=== PATIENT | female | born 1995 | race Caucasian/White ===

== ENCOUNTER 2021-07-10 19:00 | Outpatient (CLI) | payer OTHER ==
[2021-07-10 20:42] VITALS: BP 127/87
[2021-07-10 20:54] VITALS: BP 127/87
[2021-07-10 22:17] LABS: GLUCOMETER DEV NAME(LOC) POC.BV
== END 2021-07-11 09:15 | disposition home or self-care (01) ==
LOC: CSU 19:00
PROVIDERS: ATTEND Psychiatry & Neurology Psychiatry
DX: F42.9 Obsessive-compulsive disorder, unspecified (principal); F41.9 Anxiety disorder, unspecified; Z20.822 Contact with and (suspected) exposure to COVID-19; Z88.0 Allergy status to penicillin
CPT/HCPCS: 90792

== ENCOUNTER 2021-09-30 20:30 | Emergency (ER) | payer OTHER ==
[~2021-09-30] VITALS: Ht 170.2 cm; Wt 113.6 kg
[2021-09-30] MEDS ORDERED: LEVO125 PO (20:36)
[2021-09-30 21:11] LABS: BASOPHILS % (AUTO) 0.7 % (0.0-2.0); EOSINOPHILS % (AUTO) 2.8 % (1.0-6.0); HEMATOCRIT 40.1 % (36-46); HEMOGLOBIN 13.3 g/dL (12.0-16.0); LYMPHOCYTES # (AUTO) 2.9 K/uL (1.0-4.8); LYMPHOCYTES % (AUTO) 31.8 % (22.0-44.0); MEAN CORPUSCULAR HEMOGLOBIN 27.3 pg (26.0-34.0); MEAN CORPUSCULAR HGB CONC 33.3 G/dL (31.0-37.0); MEAN CORPUSCULAR VOLUME 82 fL (80-100); MONOCYTES # (AUTO) 0.6 K/uL (0.1-1.0); NEUTROPHILS # (AUTO) 5.3 K/uL (1.8-7.7); NEUTROPHILS % (AUTO) 57.7 % (40.0-70.0); PLATELET COUNT (AUTO) 356 K/uL (150-450); RED BLOOD CELL COUNT(AUTO) 4.88 MIL/uL (4.00-5.20); RED CELL DISTRIBUTION WIDTH 14.3 % (11.5-14.5)
[2021-09-30 21:20] LABS: ANION GAP 8 mmol/L (8-16); CALCIUM, TOTAL 9.2 mg/dL (8.8-10.5); CARBON DIOXIDE 28 mmol/L (22-29); CHLORIDE 104 mmol/L (98-107); CREATININE 0.81 mg/dL (0.60-1.30); GLUCOSE,RANDOM 94 mg/dL (70-110); POTASSIUM 3.6 mmol/L (3.5-5.1); SODIUM SERUM 140 mmol/L (136-145); UREA NITROGEN, BLOOD 10 mg/dL (7-18)
[2021-09-30 21:22] LABS: GLOMERULAR FILTR. RATE CALC > 60 mL/min (>60)
[2021-09-30 21:34] LABS: ALANINE AMINOTRANSFERASE 32 U/L (12-78); ALBUMIN 3.8 g/dL (3.4-5.0); ALKALINE PHOSPHATASE 109 U/L (46-116); ASPARTATE AMINOTRANSFERASE 17 U/L (15-37); BILIRUBIN,TOTAL 0.4 mg/dL (0.1-1.0); HCG,QUANTITATIVE < 1 mIU/mL (0-6); THYROID STIMULATING HORMONE 1.07 uIU/mL (0.36-3.74); TOTAL PROTEIN, SERUM 7.7 g/dL (6.4-8.2)
[2021-09-30 22:56] LABS: AMPHET/METH SCREEN,URINE NEGATIVE (NEGATIVE); BARBITURATE SCREEN, URINE NEGATIVE (NEGATIVE); BENZODIAZEPINES SCREEN,URINE NEGATIVE (NEGATIVE); CANNABINOID SCREEN,URINE NEGATIVE (NEGATIVE); COCAINE SCREEN,URINE NEGATIVE (NEGATIVE); METHADONE SCREEN, URINE NEGATIVE (NEGATIVE); OPIATE SCREEN,URINE NEGATIVE (NEGATIVE)
[2021-09-30 22:59] LABS: PHENCYCLIDINE SCREEN,URINE NEGATIVE (NEGATIVE)
[2021-10-01 00:09] LABS: COVID AG,FIA SOURCE NASAL SWAB
[2021-10-01 00:47] VITALS: BP 120/70
[2021-10-01] MEDS ORDERED: FLUV150C2 PO (20:03)
[2021-10-01] MEDS ORDERED: LAMO150T6 PO (20:03)
[2021-10-01] MEDS ORDERED: HYDR-4808 PO (20:03)
[2021-10-01] MEDS ORDERED: LEVO75 PO (20:03)
== END 2021-10-01 01:07 | disposition home or self-care (01) ==
LOC: EMS 20:34
DX: F41.9 Anxiety disorder, unspecified (principal); Z20.822 Contact with and (suspected) exposure to COVID-19; F32.9 Major depressive disorder, single episode, unspecified; F10.20 Alcohol dependence, uncomplicated; Z88.0 Allergy status to penicillin
CPT/HCPCS: 36415; 80053; 80307; 84443; 84702; 85025; 87426; 99284; G0480; 99283

== ENCOUNTER 2021-10-01 18:38 | Inpatient (IN) | payer OTHER ==
[~2021-10-01] VITALS: Ht 175.3 cm; Wt 131.3 kg
[~2021-10-01 18:38] MED LIST: LEVO125 PO
[2021-10-01 19:49] LABS: BASOPHILS % (AUTO) 0.5 % (0.0-2.0); EOSINOPHILS % (AUTO) 1.6 % (1.0-6.0); HEMATOCRIT 38.4 % (36-46); HEMOGLOBIN 12.9 g/dL (12.0-16.0); LYMPHOCYTES # (AUTO) 2.1 K/uL (1.0-4.8); MEAN CORPUSCULAR HEMOGLOBIN 27.7 pg (26.0-34.0); MEAN CORPUSCULAR HGB CONC 33.7 G/dL (31.0-37.0); MEAN CORPUSCULAR VOLUME 82 fL (80-100); MONOCYTES # (AUTO) 0.7 K/uL (0.1-1.0); MONOCYTES % (AUTO) 7.1 % (2.0-9.0); NEUTROPHILS # (AUTO) 7.4 K/uL (1.8-7.7); NEUTROPHILS % (AUTO) 70.8 % (40.0-70.0); PLATELET COUNT (AUTO) 350 K/uL (150-450); RED BLOOD CELL COUNT(AUTO) 4.66 MIL/uL (4.00-5.20); RED CELL DISTRIBUTION WIDTH 14.1 % (11.5-14.5)
[2021-10-01 19:58] LABS: ANION GAP 7 mmol/L (8-16); CALCIUM, TOTAL 9.4 mg/dL (8.8-10.5); CARBON DIOXIDE 30 mmol/L (22-29); CHLORIDE 101 mmol/L (98-107); CREATININE 0.87 mg/dL (0.60-1.30); GLOMERULAR FILTR. RATE CALC > 60 mL/min (>60); GLUCOSE,RANDOM 92 mg/dL (70-110); POTASSIUM 4.4 mmol/L (3.5-5.1); SODIUM SERUM 138 mmol/L (136-145); UREA NITROGEN, BLOOD 14 mg/dL (7-18)
[2021-10-01] MEDS ORDERED: SODIUM CHLORIDE 0.9% 1,000 ML IV ONE (20:00)
[2021-10-01] MEDS ORDERED: LEVO75 PO (20:03)
[2021-10-01] MEDS ORDERED: FLUV150C2 PO (20:03)
[2021-10-01] MEDS ORDERED: HYDR-4808 PO (20:03)
[2021-10-01] MEDS ORDERED: LAMO150T6 PO (20:03)
[2021-10-01 20:09] LABS: ALANINE AMINOTRANSFERASE 30 U/L (12-78); ALBUMIN 3.9 g/dL (3.4-5.0); ALKALINE PHOSPHATASE 106 U/L (46-116); ASPARTATE AMINOTRANSFERASE 16 U/L (15-37); BILIRUBIN,TOTAL 0.4 mg/dL (0.1-1.0); HCG,QUANTITATIVE < 1 mIU/mL (0-6); TOTAL PROTEIN, SERUM 7.7 g/dL (6.4-8.2)
[2021-10-01 20:10] LABS: ACETAMINOPHEN < 2 mcg/mL (10-30)
[2021-10-01 20:14] LABS: SALICYLATE 0.2 mg/dL (2.8-20.0)
[2021-10-01] MEDS ORDERED: ACTIVATED CHARCOAL 50 GM/240 ML SUSPENSION PO ONE (21:15)
[2021-10-01] MEDS ORDERED: SODIUM BICARBONATE [ADULT] 8.4% 50 MEQ/50 ML SYRINGE IVP ONE (21:30)
[2021-10-01] MEDS ORDERED: ONDANSETRON HCL 4 MG/2 ML VIAL IVP PRN (22:15)
[2021-10-01 22:35] LABS: COVID AG,FIA SOURCE NASAL SWAB
[2021-10-01 22:39] LABS: FREE T4 (FREE THYROXINE) 1.37 ng/dL (0.76-1.46); THYROID STIMULATING HORMONE 1.61 uIU/mL (0.36-3.74)
[2021-10-02] VITALS: BP 129/80
[2021-10-02] MEDS ORDERED: HEPARIN SODIUM,PORCINE 5,000 UNITS/ML VIAL SQ SCH
[2021-10-02 04:00] VITALS: BP 120/75
[2021-10-02 05:03] LABS: BASOPHILS % (AUTO) 0.4 % (0.0-2.0); EOSINOPHILS % (AUTO) 0.9 % (1.0-6.0); HEMATOCRIT 32.5 % (36-46); HEMOGLOBIN 10.8 g/dL (12.0-16.0); LYMPHOCYTES # (AUTO) 2.1 K/uL (1.0-4.8); MEAN CORPUSCULAR HEMOGLOBIN 27.6 pg (26.0-34.0); MEAN CORPUSCULAR HGB CONC 33.2 G/dL (31.0-37.0); MEAN CORPUSCULAR VOLUME 83 fL (80-100); MONOCYTES # (AUTO) 0.8 K/uL (0.1-1.0); MONOCYTES % (AUTO) 6.4 % (2.0-9.0); NEUTROPHILS # (AUTO) 8.7 K/uL (1.8-7.7); NEUTROPHILS % (AUTO) 74.3 % (40.0-70.0); PLATELET COUNT (AUTO) 275 K/uL (150-450); RED BLOOD CELL COUNT(AUTO) 3.91 MIL/uL (4.00-5.20); RED CELL DISTRIBUTION WIDTH 14.2 % (11.5-14.5)
[2021-10-02 05:11] LABS: ANION GAP 6 mmol/L (8-16); CALCIUM, TOTAL 8.6 mg/dL (8.8-10.5); CARBON DIOXIDE 28 mmol/L (22-29); CHLORIDE 103 mmol/L (98-107); GLUCOSE,RANDOM 94 mg/dL (70-110); POTASSIUM 3.5 mmol/L (3.5-5.1); SODIUM SERUM 137 mmol/L (136-145); UREA NITROGEN, BLOOD 11 mg/dL (7-18)
[2021-10-02 05:16] LABS: GLOMERULAR FILTR. RATE CALC > 60 mL/min (>60)
[2021-10-02] MEDS ORDERED: MAGNESIUM SULFATE 2 GM/WATER 50 ML IV ONE (07:00)
[2021-10-02] MEDS ORDERED: POTASSIUM CHLORIDE 10% 40 MEQ/30 ML LIQUID UDCUP PO ONE (07:00)
[2021-10-02 07:19] LABS: ACETAMINOPHEN < 2 mcg/mL (10-30)
[2021-10-02 08:00] VITALS: BP 99/63
[2021-10-02] MEDS: NYSTATIN 15 GM POWDER BOTTLE TP SCH ×2 (10:02→21:05)
[2021-10-02] MEDS ORDERED: SODIUM CHLORIDE 0.9% 250 ML IV ONE (10:10)
[2021-10-02 12:03] VITALS: BP 123/80
[2021-10-02 16:08] VITALS: BP 101/41
[2021-10-02 20:27] VITALS: BP 114/72
[2021-10-03 00:33] VITALS: BP 110/62
[2021-10-03 04:20] VITALS: BP 126/69
[2021-10-03 08:02] VITALS: BP 121/70
[2021-10-03 08:09] LABS: BASOPHILS % (AUTO) 1.1 % (0.0-2.0); EOSINOPHILS % (AUTO) 2.9 % (1.0-6.0); HEMATOCRIT 33.7 % (36-46); HEMOGLOBIN 11.4 g/dL (12.0-16.0); LYMPHOCYTES # (AUTO) 3.3 K/uL (1.0-4.8); LYMPHOCYTES % (AUTO) 39.6 % (22.0-44.0); MEAN CORPUSCULAR HGB CONC 33.9 G/dL (31.0-37.0); MEAN CORPUSCULAR VOLUME 82 fL (80-100); MONOCYTES # (AUTO) 0.7 K/uL (0.1-1.0); MONOCYTES % (AUTO) 8.1 % (2.0-9.0); NEUTROPHILS % (AUTO) 48.3 % (40.0-70.0); PLATELET COUNT (AUTO) 279 K/uL (150-450); RED BLOOD CELL COUNT(AUTO) 4.09 MIL/uL (4.00-5.20); RED CELL DISTRIBUTION WIDTH 14.3 % (11.5-14.5)
[2021-10-03 08:36] LABS: ANION GAP 7 mmol/L (8-16); BILIRUBIN,TOTAL 0.5 mg/dL (0.1-1.0); CALCIUM, TOTAL 8.8 mg/dL (8.8-10.5); CARBON DIOXIDE 28 mmol/L (22-29); CHLORIDE 102 mmol/L (98-107); CREATININE 0.76 mg/dL (0.60-1.30); GLUCOSE,RANDOM 91 mg/dL (70-110); POTASSIUM 3.9 mmol/L (3.5-5.1); SODIUM SERUM 137 mmol/L (136-145); UREA NITROGEN, BLOOD 13 mg/dL (7-18)
[2021-10-03 08:37] LABS: ALANINE AMINOTRANSFERASE 21 U/L (12-78); ALBUMIN 3.2 g/dL (3.4-5.0); ALKALINE PHOSPHATASE 91 U/L (46-116); ASPARTATE AMINOTRANSFERASE 15 U/L (15-37); GLOMERULAR FILTR. RATE CALC > 60 mL/min (>60); TOTAL PROTEIN, SERUM 6.9 g/dL (6.4-8.2)
[2021-10-03 12:00] VITALS: BP 138/49
[2021-10-03] MEDS: NYSTATIN 15 GM POWDER BOTTLE TP SCH ×2 (15:03→21:00)
[2021-10-03 16:01] VITALS: BP 106/60
[2021-10-03 20:15] VITALS: BP 105/49
[2021-10-04 05:00] VITALS: BP 115/50
[2021-10-04 08:03] VITALS: BP 119/62
[2021-10-04] MEDS: NYSTATIN 15 GM POWDER BOTTLE TP SCH (08:46)
[2021-10-04 16:10] VITALS: BP 114/58
[2021-10-04] MEDS ORDERED: NYST15PO3 TP (18:04)
== END 2021-10-04 18:15 | DRG 817 ==
LOC: EMS 18:41 → ICU 23:56 → 5S 10-02 12:15 → 6S 10-03 15:10
PROVIDERS: ADMIT Internal Medicine; ATTEND Internal Medicine
DX: T38.1X2A Poisoning by thyroid hormones and substitutes, intentional self-harm, initial encounter (principal); G92.9 Unspecified toxic encephalopathy; R45.851 Suicidal ideations; T43.012A Poisoning by tricyclic antidepressants, intentional self-harm, initial encounter; D72.829 Elevated white blood cell count, unspecified; E03.9 Hypothyroidism, unspecified; E66.01 Morbid (severe) obesity due to excess calories; D64.9 Anemia, unspecified; Z20.822 Contact with and (suspected) exposure to COVID-19; F42.9 Obsessive-compulsive disorder, unspecified; F32.A Depression, unspecified; Y92.89 Other specified places as the place of occurrence of the external cause; Z88.0 Allergy status to penicillin; Z79.899 Other long term (current) drug therapy; Z68.41 Body mass index [BMI] 40.0-44.9, adult
CPT/HCPCS: 80048; 80053; 83540; 83735; 84439; 84443; 84481; 84702; 85025; 85045; 87081; 93005; 99291; G0378; G0480; G0481; J1644; J3475; J3490; J7050

== ENCOUNTER 2021-10-04 18:00 | Inpatient (IN) | payer MEDICAID ==
[~2021-10-04] VITALS: Ht 170.2 cm; Wt 131.6 kg
[~2021-10-04 18:00] MED LIST changes: +FLUV150C2 PO; +HYDR-4808 PO; +LAMO150T6 PO; +LEVO75 PO
[2021-10-04] MEDS ORDERED: NYST15PO3 TP (18:04)
[2021-10-04 18:58] VITALS: BP 136/89
[2021-10-05] MEDS ORDERED: PETROLATUM,WHITE 28 GM JELLY TP PRN (06:15)
[2021-10-05] MEDS ORDERED: NICOTINE 14 MG/24 HOUR PATCH TD PRN (06:15)
[2021-10-05] MEDS ORDERED: LOPERAMIDE HCL 2 MG CAPSULE PO PRN (06:15)
[2021-10-05] MEDS ORDERED: CloNIDine HCL 0.1 MG TABLET PO PRN (06:15)
[2021-10-05] MEDS ORDERED: ALBUTEROL SULFATE HFA 90 MCG/PUFF 8 GM INHALER IH PRN (06:15)
[2021-10-05] MEDS ORDERED: MAGNESIUM HYDROXIDE SUSPENSION 30 ML UDCUP PO PRN (06:15)
[2021-10-05] MEDS ORDERED: DOCUSATE SODIUM 100 MG CAPSULE PO PRN (06:15)
[2021-10-05] MEDS ORDERED: IBUPROFEN 400 MG TABLET PO PRN (06:15)
[2021-10-05] MEDS ORDERED: MAG HYDROX/AL HYDROX/SIMETH ES 30 ML SUSPENSION UDCUP PO PRN (06:15)
[2021-10-05] MEDS ORDERED: GuaiFENesin/D-METHORPHAN [SUGAR-FREE] 200-20MG/10 ML SYRUP UDCUP PO PRN (06:15)
[2021-10-05] MEDS: LEVOTHYROXINE SODIUM 50 MCG TABLET PO SCH (06:44)
[2021-10-05 09:04] VITALS: BP 125/88
[2021-10-05 11:22] LABS: BASOPHILS % (AUTO) 0.7 % (0.0-2.0); EOSINOPHILS % (AUTO) 2.6 % (1.0-6.0); HEMATOCRIT 37.3 % (36-46); HEMOGLOBIN 12.3 g/dL (12.0-16.0); LYMPHOCYTES # (AUTO) 2.5 K/uL (1.0-4.8); LYMPHOCYTES % (AUTO) 25.6 % (22.0-44.0); MEAN CORPUSCULAR HEMOGLOBIN 27.2 pg (26.0-34.0); MEAN CORPUSCULAR HGB CONC 32.9 G/dL (31.0-37.0); MEAN CORPUSCULAR VOLUME 83 fL (80-100); MONOCYTES # (AUTO) 0.6 K/uL (0.1-1.0); MONOCYTES % (AUTO) 6.4 % (2.0-9.0); NEUTROPHILS # (AUTO) 6.2 K/uL (1.8-7.7); NEUTROPHILS % (AUTO) 64.7 % (40.0-70.0); PLATELET COUNT (AUTO) 322 K/uL (150-450); RED BLOOD CELL COUNT(AUTO) 4.52 MIL/uL (4.00-5.20); RED CELL DISTRIBUTION WIDTH 13.8 % (11.5-14.5)
[2021-10-05 12:50] LABS: ALANINE AMINOTRANSFERASE 24 U/L (12-78); ALBUMIN 3.5 g/dL (3.4-5.0); ALKALINE PHOSPHATASE 93 U/L (46-116); ANION GAP 8 mmol/L (8-16); ASPARTATE AMINOTRANSFERASE 12 U/L (15-37); BILIRUBIN,TOTAL 0.5 mg/dL (0.1-1.0); CALCIUM, TOTAL 9.2 mg/dL (8.8-10.5); CARBON DIOXIDE 29 mmol/L (22-29); CHLORIDE 103 mmol/L (98-107); CREATININE 0.86 mg/dL (0.60-1.30); FREE T4 (FREE THYROXINE) 1.52 ng/dL (0.76-1.46); GLUCOSE,RANDOM 87 mg/dL (70-110); POTASSIUM 4.2 mmol/L (3.5-5.1); SODIUM SERUM 140 mmol/L (136-145); THYROID STIMULATING HORMONE 0.06 uIU/mL (0.36-3.74); TOTAL PROTEIN, SERUM 7.1 g/dL (6.4-8.2); UREA NITROGEN, BLOOD 19 mg/dL (7-18)
[2021-10-05 12:51] LABS: GLOMERULAR FILTR. RATE CALC > 60 mL/min (>60)
[2021-10-05] MEDS: NYSTATIN 15 GM POWDER BOTTLE TP SCH ×3 (14:30→17:08)
[2021-10-05 16:00] VITALS: BP 138/83
[2021-10-06] MEDS: LEVOTHYROXINE SODIUM 50 MCG TABLET PO SCH (06:09)
[2021-10-06 08:44] VITALS: BP 108/76
[2021-10-06] MEDS: FluvoxaMINE MALEATE 50 MG TABLET PO SCH (09:15)
[2021-10-06] MEDS: NYSTATIN 15 GM POWDER BOTTLE TP SCH ×2 (09:16→17:00)
[2021-10-06 16:00] VITALS: BP 110/68
[2021-10-07] MEDS: LEVOTHYROXINE SODIUM 50 MCG TABLET PO SCH (06:51)
[2021-10-07 08:05] VITALS: BP 136/90
[2021-10-07 08:08] LABS: COVID AG,FIA SOURCE NASAL SWAB
[2021-10-07] MEDS: FluvoxaMINE MALEATE 50 MG TABLET PO SCH (08:49)
[2021-10-07] MEDS: NYSTATIN 15 GM POWDER BOTTLE TP SCH ×2 (09:00→16:28)
[2021-10-07 16:00] VITALS: BP 131/80
[2021-10-07 18:09] VITALS: BP 139/89
[2021-10-07] MEDS: HALOPERIDOL 5 MG TABLET PO PRN (18:09)
[2021-10-07] MEDS: LORazepam 2 MG TABLET PO PRN (18:09)
[2021-10-08] MEDS: LEVOTHYROXINE SODIUM 50 MCG TABLET PO SCH (06:13)
[2021-10-08 08:11] VITALS: BP 115/70
[2021-10-08] MEDS: NYSTATIN 15 GM POWDER BOTTLE TP SCH ×2 (08:46→16:33)
[2021-10-08] MEDS: FluvoxaMINE MALEATE 50 MG TABLET PO SCH (08:46)
[2021-10-09] MEDS: LEVOTHYROXINE SODIUM 50 MCG TABLET PO SCH (06:38)
[2021-10-09 08:00] VITALS: BP 144/92
[2021-10-09] MEDS: NYSTATIN 15 GM POWDER BOTTLE TP SCH ×2 (10:08→16:07)
[2021-10-09] MEDS: FluvoxaMINE MALEATE 50 MG TABLET PO SCH (10:08)
[2021-10-09 16:30] VITALS: BP 118/79
[2021-10-09] MEDS: LORazepam 2 MG TABLET PO PRN (16:49)
[2021-10-09] MEDS: HALOPERIDOL 5 MG TABLET PO PRN (16:49)
[2021-10-09] MEDS ORDERED: FLUV50 PO (21:27)
[2021-10-10] MEDS: LORazepam 2 MG TABLET PO PRN (00:22)
[2021-10-10] MEDS: HALOPERIDOL 5 MG TABLET PO PRN (00:22)
[2021-10-10] MEDS: LEVOTHYROXINE SODIUM 50 MCG TABLET PO SCH (06:38)
[2021-10-10 08:59] VITALS: BP 145/89
[2021-10-10] MEDS: FluvoxaMINE MALEATE 50 MG TABLET PO SCH (10:26)
[2021-10-10] MEDS: NYSTATIN 15 GM POWDER BOTTLE TP SCH ×2 (10:26→16:06)
[2021-10-10 16:30] VITALS: BP 124/89
[2021-10-10 21:18] VITALS: BP 147/94
[2021-10-11] MEDS: LEVOTHYROXINE SODIUM 50 MCG TABLET PO SCH (06:32)
[2021-10-11 08:38] VITALS: BP 140/88
[2021-10-11] MEDS: NYSTATIN 15 GM POWDER BOTTLE TP SCH ×2 (09:00→16:17)
[2021-10-11] MEDS: FluvoxaMINE MALEATE 50 MG TABLET PO SCH (09:01)
[2021-10-11 16:00] VITALS: BP 131/83
[2021-10-11] MEDS: LORazepam 2 MG TABLET PO PRN (22:40)
[2021-10-12] MEDS: LEVOTHYROXINE SODIUM 50 MCG TABLET PO SCH (06:49)
[2021-10-12 08:00] VITALS: BP 90/68
[2021-10-12] MEDS: FluvoxaMINE MALEATE 50 MG TABLET PO SCH (08:38)
[2021-10-12] MEDS: NYSTATIN 15 GM POWDER BOTTLE TP SCH ×2 (09:00→16:23)
[2021-10-12 16:21] VITALS: BP 109/72
[2021-10-12] MEDS: LORazepam 2 MG TABLET PO PRN (20:49)
[2021-10-13] MEDS: LEVOTHYROXINE SODIUM 50 MCG TABLET PO SCH (06:47)
[2021-10-13 08:00] VITALS: BP 106/67
[2021-10-13] MEDS: FluvoxaMINE MALEATE 50 MG TABLET PO SCH (08:51)
[2021-10-13] MEDS: NYSTATIN 15 GM POWDER BOTTLE TP SCH ×2 (09:00→16:10)
[2021-10-13 12:51] LABS: COVID AG,FIA SOURCE NASAL SWAB
[2021-10-13 16:16] VITALS: BP 129/87
[2021-10-14] MEDS: LEVOTHYROXINE SODIUM 50 MCG TABLET PO SCH (06:36)
[2021-10-14 08:33] VITALS: BP 121/81
[2021-10-14] MEDS: FluvoxaMINE MALEATE 50 MG TABLET PO SCH (08:48)
[2021-10-14] MEDS: NYSTATIN 15 GM POWDER BOTTLE TP SCH ×2 (09:00→16:11)
[2021-10-14] MEDS: HALOPERIDOL 5 MG TABLET PO PRN (14:56)
[2021-10-14] MEDS: LORazepam 2 MG TABLET PO PRN (14:57)
[2021-10-14 17:29] VITALS: BP 99/47
[2021-10-15] MEDS: LEVOTHYROXINE SODIUM 50 MCG TABLET PO SCH (06:51)
[2021-10-15 08:28] VITALS: BP 103/65
[2021-10-15] MEDS: NYSTATIN 15 GM POWDER BOTTLE TP SCH ×2 (09:59→16:16)
[2021-10-15] MEDS: FluvoxaMINE MALEATE 50 MG TABLET PO SCH (10:00)
[2021-10-15 16:10] VITALS: BP 112/75
[2021-10-15] MEDS: LORazepam 2 MG TABLET PO PRN (21:06)
[2021-10-16] MEDS: LEVOTHYROXINE SODIUM 50 MCG TABLET PO SCH (06:38)
[2021-10-16 08:00] VITALS: BP 132/82
[2021-10-16] MEDS: FluvoxaMINE MALEATE 50 MG TABLET PO SCH (08:26)
[2021-10-16] MEDS: NYSTATIN 15 GM POWDER BOTTLE TP SCH ×2 (08:32→16:06)
[2021-10-16 16:49] VITALS: BP 139/75
[2021-10-16] MEDS: LORazepam 2 MG TABLET PO PRN (22:01)
[2021-10-17] MEDS: LEVOTHYROXINE SODIUM 50 MCG TABLET PO SCH (06:11)
[2021-10-17 08:00] VITALS: BP 117/68
[2021-10-17] MEDS: FluvoxaMINE MALEATE 50 MG TABLET PO SCH (08:06)
[2021-10-17] MEDS: NYSTATIN 15 GM POWDER BOTTLE TP SCH ×2 (09:00→16:30)
[2021-10-17] MEDS: LORazepam 2 MG TABLET PO PRN (21:00)
[2021-10-18] MEDS: LEVOTHYROXINE SODIUM 50 MCG TABLET PO SCH (06:15)
[2021-10-18 08:00] VITALS: BP 116/66
[2021-10-18] MEDS: LORazepam 2 MG TABLET PO PRN ×2 (08:49→21:21)
[2021-10-18] MEDS: FluvoxaMINE MALEATE 50 MG TABLET PO SCH (08:49)
[2021-10-18] MEDS: NYSTATIN 15 GM POWDER BOTTLE TP SCH ×2 (09:00→17:00)
[2021-10-18 16:00] VITALS: BP 110/69
[2021-10-19] MEDS: LEVOTHYROXINE SODIUM 50 MCG TABLET PO SCH (06:52)
[2021-10-19 08:55] VITALS: BP 109/69
[2021-10-19] MEDS: NYSTATIN 15 GM POWDER BOTTLE TP SCH ×2 (09:00→16:34)
[2021-10-19] MEDS: FluvoxaMINE MALEATE 50 MG TABLET PO SCH (09:07)
[2021-10-19 16:29] VITALS: BP 103/66
[2021-10-19] MEDS: LORazepam 2 MG TABLET PO PRN (22:57)
[2021-10-19] MEDS: HALOPERIDOL 5 MG TABLET PO PRN (22:57)
[2021-10-20] MEDS: LEVOTHYROXINE SODIUM 50 MCG TABLET PO SCH (06:37)
[2021-10-20 07:05] LABS: COVID AG,FIA SOURCE NASAL SWAB
[2021-10-20] MEDS: FluvoxaMINE MALEATE 50 MG TABLET PO SCH (08:30)
[2021-10-20 08:33] VITALS: BP 133/82
[2021-10-20] MEDS: NYSTATIN 15 GM POWDER BOTTLE TP SCH ×2 (08:46→16:32)
[2021-10-20 16:27] VITALS: BP 113/56
[2021-10-20] MEDS: HALOPERIDOL 5 MG TABLET PO PRN (17:54)
[2021-10-20] MEDS: LORazepam 2 MG TABLET PO PRN (17:54)
[2021-10-21] MEDS: LEVOTHYROXINE SODIUM 50 MCG TABLET PO SCH (06:38)
[2021-10-21 08:54] VITALS: BP 131/86
[2021-10-21] MEDS: FluvoxaMINE MALEATE 50 MG TABLET PO SCH (09:03)
[2021-10-21 16:00] VITALS: BP 145/85
[2021-10-21] MEDS: LORazepam 2 MG TABLET PO PRN (17:04)
[2021-10-21] MEDS: HALOPERIDOL 5 MG TABLET PO PRN (17:04)
[2021-10-22] MEDS: LEVOTHYROXINE SODIUM 50 MCG TABLET PO SCH (06:54)
[2021-10-22] MEDS: FluvoxaMINE MALEATE 50 MG TABLET PO SCH (08:51)
[2021-10-22 08:58] VITALS: BP 106/68
[2021-10-22 16:18] VITALS: BP 110/60
[2021-10-22] MEDS: HALOPERIDOL 5 MG TABLET PO PRN (17:15)
[2021-10-22] MEDS: LORazepam 2 MG TABLET PO PRN (17:15)
[2021-10-23] MEDS: LEVOTHYROXINE SODIUM 50 MCG TABLET PO SCH (06:20)
[2021-10-23 09:07] VITALS: BP 129/86
[2021-10-23] MEDS: FluvoxaMINE MALEATE 50 MG TABLET PO SCH (10:17)
[2021-10-23] MEDS: HALOPERIDOL 5 MG TABLET PO PRN ×2 (13:12→20:51)
[2021-10-23] MEDS: LORazepam 2 MG TABLET PO PRN (13:12)
[2021-10-23 16:22] VITALS: BP 124/82
[2021-10-23 20:45] VITALS: BP 140/98
[2021-10-24] MEDS: LEVOTHYROXINE SODIUM 50 MCG TABLET PO SCH (07:00)
[2021-10-24] MEDS: FluvoxaMINE MALEATE 50 MG TABLET PO SCH (08:10)
[2021-10-24 08:49] VITALS: BP 103/66
[2021-10-24 16:07] VITALS: BP 124/86
[2021-10-24] MEDS: LORazepam 2 MG TABLET PO PRN (21:31)
[2021-10-25] MEDS: LEVOTHYROXINE SODIUM 50 MCG TABLET PO SCH (06:34)
[2021-10-25] MEDS: FluvoxaMINE MALEATE 50 MG TABLET PO SCH (09:32)
[2021-10-25] MEDS: ONDANSETRON HCL 4 MG TABLET PO PRN (10:23)
[2021-10-25] MEDS: ACETAMINOPHEN 325 MG TABLET PO PRN (15:35)
[2021-10-25 16:30] VITALS: BP 119/81
[2021-10-25] MEDS: HALOPERIDOL 5 MG TABLET PO PRN (18:04)
[2021-10-25] MEDS: LORazepam 2 MG TABLET PO PRN (18:04)
[2021-10-26] MEDS: LEVOTHYROXINE SODIUM 50 MCG TABLET PO SCH (06:36)
[2021-10-26 08:00] VITALS: BP 104/70
[2021-10-26] MEDS: FluvoxaMINE MALEATE 50 MG TABLET PO SCH (08:29)
[2021-10-26] MEDS: ONDANSETRON HCL 4 MG TABLET PO PRN (08:47)
[2021-10-26] MEDS: LORazepam 2 MG TABLET PO PRN (11:41)
[2021-10-26 16:00] VITALS: BP 108/65
[2021-10-26] MEDS: DIVALPROEX SODIUM 500 MG DR TABLET PO SCH (16:14)
[2021-10-26] MEDS: HALOPERIDOL 5 MG TABLET PO PRN (16:14)
[2021-10-26] MEDS: LITHIUM CARBONATE 300 MG CAPSULE PO SCH (20:32)
[2021-10-26 21:56] LABS: COVID AG,FIA SOURCE NASAL SWAB
[2021-10-27] MEDS: LEVOTHYROXINE SODIUM 50 MCG TABLET PO SCH (06:52)
[2021-10-27 09:10] VITALS: BP 99/59
[2021-10-27] MEDS: DIVALPROEX SODIUM 500 MG DR TABLET PO SCH ×2 (09:15→16:18)
[2021-10-27] MEDS: LITHIUM CARBONATE 300 MG CAPSULE PO SCH ×2 (09:15→20:17)
[2021-10-27] MEDS: FluvoxaMINE MALEATE 50 MG TABLET PO SCH (09:15)
[2021-10-27 16:00] VITALS: BP 132/81
[2021-10-27] MEDS: HALOPERIDOL 5 MG TABLET PO PRN (17:57)
[2021-10-28] MEDS: LEVOTHYROXINE SODIUM 50 MCG TABLET PO SCH (06:33)
[2021-10-28] MEDS: LITHIUM CARBONATE 300 MG CAPSULE PO SCH ×2 (09:49→20:24)
[2021-10-28] MEDS: FluvoxaMINE MALEATE 50 MG TABLET PO SCH (09:49)
[2021-10-28] MEDS: DIVALPROEX SODIUM 500 MG DR TABLET PO SCH ×2 (09:49→16:12)
[2021-10-28 10:01] VITALS: BP 125/87
[2021-10-28 16:59] VITALS: BP 99/62
[2021-10-28] MEDS: HALOPERIDOL 5 MG TABLET PO PRN ×2 (18:35→22:59)
[2021-10-29] MEDS: LEVOTHYROXINE SODIUM 50 MCG TABLET PO SCH (06:43)
[2021-10-29] MEDS: FluvoxaMINE MALEATE 50 MG TABLET PO SCH (08:30)
[2021-10-29] MEDS: DIVALPROEX SODIUM 500 MG DR TABLET PO SCH ×2 (08:30→16:29)
[2021-10-29] MEDS: LITHIUM CARBONATE 300 MG CAPSULE PO SCH ×2 (08:30→20:31)
[2021-10-29 09:04] VITALS: BP 98/60
[2021-10-29 16:27] VITALS: BP 110/65
[2021-10-29] MEDS: HALOPERIDOL 5 MG TABLET PO PRN (22:36)
[2021-10-30 05:49] VITALS: BP 129/85
[2021-10-30] MEDS: LEVOTHYROXINE SODIUM 50 MCG TABLET PO SCH (06:23)
[2021-10-30] MEDS: DIVALPROEX SODIUM 500 MG DR TABLET PO SCH ×2 (08:29→16:10)
[2021-10-30] MEDS: FluvoxaMINE MALEATE 50 MG TABLET PO SCH (08:29)
[2021-10-30] MEDS: LITHIUM CARBONATE 300 MG CAPSULE PO SCH ×2 (08:29→20:14)
[2021-10-30 09:33] VITALS: BP 104/62
[2021-10-30 16:23] VITALS: BP 146/89
[2021-10-30] MEDS: HALOPERIDOL 5 MG TABLET PO PRN (20:14)
[2021-10-31 00:10] VITALS: BP 130/72
[2021-10-31] MEDS: HALOPERIDOL 5 MG TABLET PO PRN ×3 (00:34→20:37)
[2021-10-31] MEDS: LEVOTHYROXINE SODIUM 50 MCG TABLET PO SCH (06:47)
[2021-10-31 07:02] LABS: LITHIUM 0.34 mmol/L (0.60-1.20)
[2021-10-31] MEDS: FluvoxaMINE MALEATE 50 MG TABLET PO SCH (08:28)
[2021-10-31] MEDS: DIVALPROEX SODIUM 500 MG DR TABLET PO SCH ×2 (08:28→16:29)
[2021-10-31] MEDS: LITHIUM CARBONATE 300 MG CAPSULE PO SCH ×2 (08:28→20:36)
[2021-10-31 09:54] VITALS: BP 98/60
[2021-10-31 16:21] VITALS: BP 95/56
[2021-11-01] MEDS: LEVOTHYROXINE SODIUM 50 MCG TABLET PO SCH (06:26)
[2021-11-01 08:00] VITALS: BP 109/68
[2021-11-01] MEDS: DIVALPROEX SODIUM 500 MG DR TABLET PO SCH ×2 (08:37→16:50)
[2021-11-01] MEDS: FluvoxaMINE MALEATE 50 MG TABLET PO SCH (08:37)
[2021-11-01] MEDS: LITHIUM CARBONATE 300 MG CAPSULE PO SCH ×2 (08:37→20:59)
[2021-11-01 16:00] VITALS: BP 138/73
[2021-11-01] MEDS: HALOPERIDOL 5 MG TABLET PO PRN (20:00)
[2021-11-02] MEDS: LEVOTHYROXINE SODIUM 50 MCG TABLET PO SCH (06:49)
[2021-11-02 07:08] LABS: COVID AG,FIA SOURCE NASAL SWAB
[2021-11-02] MEDS: DIVALPROEX SODIUM 500 MG DR TABLET PO SCH ×2 (08:17→16:35)
[2021-11-02] MEDS: LITHIUM CARBONATE 300 MG CAPSULE PO SCH ×2 (08:17→20:48)
[2021-11-02] MEDS: FluvoxaMINE MALEATE 50 MG TABLET PO SCH (08:18)
[2021-11-02 09:08] VITALS: BP 94/59
[2021-11-02 16:23] VITALS: BP 106/71
[2021-11-02] MEDS: HALOPERIDOL 5 MG TABLET PO PRN ×2 (16:35→20:48)
[2021-11-03] MEDS: LEVOTHYROXINE SODIUM 50 MCG TABLET PO SCH (06:36)
[2021-11-03 08:02] VITALS: BP 103/66
[2021-11-03] MEDS: DIVALPROEX SODIUM 500 MG DR TABLET PO SCH ×2 (08:40→16:06)
[2021-11-03] MEDS: LITHIUM CARBONATE 300 MG CAPSULE PO SCH ×2 (08:40→20:05)
[2021-11-03] MEDS: FluvoxaMINE MALEATE 50 MG TABLET PO SCH (08:40)
[2021-11-03 16:05] VITALS: BP 117/68
[2021-11-03] MEDS: HALOPERIDOL 5 MG TABLET PO PRN (21:43)
[2021-11-04] MEDS: LEVOTHYROXINE SODIUM 50 MCG TABLET PO SCH (06:34)
[2021-11-04] MEDS: LITHIUM CARBONATE 300 MG CAPSULE PO SCH ×2 (08:05→20:01)
[2021-11-04] MEDS: DIVALPROEX SODIUM 500 MG DR TABLET PO SCH ×2 (08:05→16:49)
[2021-11-04] MEDS: FluvoxaMINE MALEATE 50 MG TABLET PO SCH (08:05)
[2021-11-04 09:52] VITALS: BP 112/69
[2021-11-04 16:54] VITALS: BP 112/69
[2021-11-04] MEDS: HALOPERIDOL 5 MG TABLET PO PRN (22:23)
[2021-11-05] MEDS: LEVOTHYROXINE SODIUM 50 MCG TABLET PO SCH (06:29)
[2021-11-05 08:00] VITALS: BP 144/88
[2021-11-05] MEDS: FluvoxaMINE MALEATE 50 MG TABLET PO SCH (09:23)
[2021-11-05] MEDS: DIVALPROEX SODIUM 500 MG DR TABLET PO SCH ×2 (09:23→17:43)
[2021-11-05] MEDS: LITHIUM CARBONATE 300 MG CAPSULE PO SCH ×2 (09:23→20:16)
[2021-11-05 16:00] VITALS: BP 127/72
[2021-11-05] MEDS: HALOPERIDOL 5 MG TABLET PO PRN ×2 (17:44→21:50)
[2021-11-05 20:47] VITALS: BP 129/82
[2021-11-06] MEDS: LEVOTHYROXINE SODIUM 50 MCG TABLET PO SCH (06:28)
[2021-11-06 08:00] VITALS: BP 114/65
[2021-11-06] MEDS: LITHIUM CARBONATE 300 MG CAPSULE PO SCH ×2 (08:56→20:05)
[2021-11-06] MEDS: DIVALPROEX SODIUM 500 MG DR TABLET PO SCH ×2 (08:56→16:07)
[2021-11-06] MEDS: FluvoxaMINE MALEATE 50 MG TABLET PO SCH (08:57)
[2021-11-06] MEDS: HALOPERIDOL 5 MG TABLET PO PRN (20:04)
[2021-11-07] MEDS: HALOPERIDOL 5 MG TABLET PO PRN ×2 (00:31→22:44)
[2021-11-07] MEDS: LEVOTHYROXINE SODIUM 50 MCG TABLET PO SCH (06:29)
[2021-11-07] MEDS: LITHIUM CARBONATE 300 MG CAPSULE PO SCH ×2 (08:36→20:04)
[2021-11-07] MEDS: FluvoxaMINE MALEATE 50 MG TABLET PO SCH (08:36)
[2021-11-07] MEDS: DIVALPROEX SODIUM 500 MG DR TABLET PO SCH ×2 (08:37→16:24)
[2021-11-07 08:44] VITALS: BP 98/57
[2021-11-07 16:00] VITALS: BP 110/65
[2021-11-08] MEDS: LEVOTHYROXINE SODIUM 50 MCG TABLET PO SCH (07:01)
[2021-11-08 08:00] VITALS: BP 103/65
[2021-11-08] MEDS: DIVALPROEX SODIUM 500 MG DR TABLET PO SCH ×2 (08:32→16:11)
[2021-11-08] MEDS: FluvoxaMINE MALEATE 50 MG TABLET PO SCH (08:32)
[2021-11-08] MEDS: LITHIUM CARBONATE 300 MG CAPSULE PO SCH ×2 (08:32→20:27)
[2021-11-08] MEDS: HALOPERIDOL 5 MG TABLET PO PRN ×2 (12:34→18:03)
[2021-11-08 16:26] VITALS: BP 110/80
[2021-11-09 00:44] VITALS: BP 110/80
[2021-11-09] MEDS: HALOPERIDOL 5 MG TABLET PO PRN ×2 (00:53→20:52)
[2021-11-09] MEDS: LEVOTHYROXINE SODIUM 50 MCG TABLET PO SCH ×2 (06:05→07:00)
[2021-11-09] MEDS: LITHIUM CARBONATE 300 MG CAPSULE PO SCH ×2 (08:21→20:33)
[2021-11-09] MEDS: DIVALPROEX SODIUM 500 MG DR TABLET PO SCH ×2 (08:21→17:54)
[2021-11-09] MEDS: FluvoxaMINE MALEATE 50 MG TABLET PO SCH (08:21)
[2021-11-09 09:52] VITALS: BP 136/83
[2021-11-09 10:10] LABS: COVID AG,FIA SOURCE NASOPHARYNGEAL
[2021-11-09 16:31] VITALS: BP 136/86
[2021-11-10] MEDS: HALOPERIDOL 5 MG TABLET PO PRN ×2 (00:57→15:22)
[2021-11-10] MEDS: FluvoxaMINE MALEATE 50 MG TABLET PO SCH (08:55)
[2021-11-10] MEDS: DIVALPROEX SODIUM 500 MG DR TABLET PO SCH ×2 (08:55→16:24)
[2021-11-10] MEDS: LITHIUM CARBONATE 300 MG CAPSULE PO SCH ×2 (08:55→21:12)
[2021-11-10 16:00] VITALS: BP 129/91
[2021-11-11] MEDS: LEVOTHYROXINE SODIUM 50 MCG TABLET PO SCH ×2 (06:39→20:12)
[2021-11-11 08:00] VITALS: BP 102/56
[2021-11-11] MEDS: DIVALPROEX SODIUM 500 MG DR TABLET PO SCH ×2 (09:37→16:11)
[2021-11-11] MEDS: FluvoxaMINE MALEATE 50 MG TABLET PO SCH (09:37)
[2021-11-11] MEDS: LITHIUM CARBONATE 300 MG CAPSULE PO SCH ×2 (09:37→20:02)
[2021-11-11] MEDS: HALOPERIDOL 5 MG TABLET PO PRN ×2 (16:11→23:52)
[2021-11-11 16:26] VITALS: BP 109/66
[2021-11-12 01:00] VITALS: BP 110/72
[2021-11-12] MEDS: ACETAMINOPHEN 325 MG TABLET PO PRN (01:13)
[2021-11-12] MEDS: LEVOTHYROXINE SODIUM 50 MCG TABLET PO SCH (06:32)
[2021-11-12] MEDS: DIVALPROEX SODIUM 500 MG DR TABLET PO SCH ×2 (09:09→17:14)
[2021-11-12] MEDS: LITHIUM CARBONATE 300 MG CAPSULE PO SCH ×2 (09:09→21:29)
[2021-11-12] MEDS: FluvoxaMINE MALEATE 50 MG TABLET PO SCH (09:09)
[2021-11-12 10:15] VITALS: BP 96/56
[2021-11-12] MEDS: HALOPERIDOL 5 MG TABLET PO PRN (17:14)
[2021-11-13] MEDS: HALOPERIDOL 5 MG TABLET PO PRN ×3 (01:00→22:37)
[2021-11-13] MEDS: LEVOTHYROXINE SODIUM 50 MCG TABLET PO SCH (06:26)
[2021-11-13] MEDS: LITHIUM CARBONATE 300 MG CAPSULE PO SCH ×2 (08:58→20:51)
[2021-11-13] MEDS: FluvoxaMINE MALEATE 50 MG TABLET PO SCH (08:58)
[2021-11-13] MEDS: DIVALPROEX SODIUM 500 MG DR TABLET PO SCH ×2 (08:58→17:14)
[2021-11-13 09:09] VITALS: BP 107/64
[2021-11-13 16:00] VITALS: BP 116/72
[2021-11-14] MEDS: HALOPERIDOL 5 MG TABLET PO PRN ×2 (03:09→16:34)
[2021-11-14] MEDS: LEVOTHYROXINE SODIUM 50 MCG TABLET PO SCH (06:05)
[2021-11-14 08:02] VITALS: BP 93/64
[2021-11-14] MEDS: DIVALPROEX SODIUM 500 MG DR TABLET PO SCH ×2 (08:33→16:34)
[2021-11-14] MEDS: LITHIUM CARBONATE 300 MG CAPSULE PO SCH ×2 (08:33→20:48)
[2021-11-14] MEDS: FluvoxaMINE MALEATE 50 MG TABLET PO SCH (08:33)
[2021-11-14 16:15] VITALS: BP 99/69
[2021-11-15] MEDS: HALOPERIDOL 5 MG TABLET PO PRN (02:02)
[2021-11-15] MEDS: LEVOTHYROXINE SODIUM 50 MCG TABLET PO SCH (06:20)
[2021-11-15 08:46] VITALS: BP 105/63
[2021-11-15] MEDS: FluvoxaMINE MALEATE 50 MG TABLET PO SCH (09:31)
[2021-11-15] MEDS: LITHIUM CARBONATE 300 MG CAPSULE PO SCH ×2 (09:31→20:23)
[2021-11-15] MEDS: DIVALPROEX SODIUM 500 MG DR TABLET PO SCH ×2 (09:31→16:45)
[2021-11-15 18:04] VITALS: BP 116/86
[2021-11-16] MEDS: HALOPERIDOL 5 MG TABLET PO PRN ×3 (00:53→16:53)
[2021-11-16] MEDS: LEVOTHYROXINE SODIUM 50 MCG TABLET PO SCH (06:25)
[2021-11-16 08:30] VITALS: BP 98/60
[2021-11-16] MEDS: LITHIUM CARBONATE 300 MG CAPSULE PO SCH ×2 (08:35→20:17)
[2021-11-16] MEDS: DIVALPROEX SODIUM 500 MG DR TABLET PO SCH ×2 (08:35→16:53)
[2021-11-16] MEDS: FluvoxaMINE MALEATE 50 MG TABLET PO SCH (08:36)
[2021-11-16 09:59] LABS: COVID AG,FIA SOURCE NASAL SWAB
[2021-11-16 16:28] VITALS: BP 127/80
[2021-11-17] MEDS: HALOPERIDOL 5 MG TABLET PO PRN ×2 (00:46→16:46)
[2021-11-17] MEDS: LEVOTHYROXINE SODIUM 50 MCG TABLET PO SCH (06:28)
[2021-11-17] MEDS: LITHIUM CARBONATE 300 MG CAPSULE PO SCH ×2 (08:17→20:43)
[2021-11-17] MEDS: FluvoxaMINE MALEATE 50 MG TABLET PO SCH (08:17)
[2021-11-17] MEDS: DIVALPROEX SODIUM 500 MG DR TABLET PO SCH ×2 (08:17→16:46)
[2021-11-17 09:19] VITALS: BP 112/73
[2021-11-17 16:25] VITALS: BP 119/74
[2021-11-18] MEDS: HALOPERIDOL 5 MG TABLET PO PRN ×2 (03:18→23:03)
[2021-11-18 04:03] VITALS: BP 126/83
[2021-11-18] MEDS: LEVOTHYROXINE SODIUM 50 MCG TABLET PO SCH (06:30)
[2021-11-18 09:05] VITALS: BP 102/64
[2021-11-18] MEDS: DIVALPROEX SODIUM 500 MG DR TABLET PO SCH ×2 (09:11→16:23)
[2021-11-18] MEDS: FluvoxaMINE MALEATE 50 MG TABLET PO SCH (09:11)
[2021-11-18] MEDS: LITHIUM CARBONATE 300 MG CAPSULE PO SCH ×2 (09:11→20:13)
[2021-11-18 20:45] VITALS: BP 123/83
[2021-11-19] MEDS: LEVOTHYROXINE SODIUM 50 MCG TABLET PO SCH (06:24)
[2021-11-19] MEDS ORDERED: FLUV150C2 PO ×2 (07:19→07:23)
[2021-11-19] MEDS ORDERED: FLUV50 PO (07:21)
[2021-11-19 08:00] VITALS: BP 135/85
[2021-11-19] MEDS ORDERED: LITH300C3 PO (08:04)
[2021-11-19] MEDS ORDERED: DIVA-112 PO (08:04)
[2021-11-19] MEDS ORDERED: LEVO50TA11 PO ×2 (08:27→08:29)
[2021-11-19] MEDS: LITHIUM CARBONATE 300 MG CAPSULE PO SCH (09:02)
[2021-11-19] MEDS: DIVALPROEX SODIUM 500 MG DR TABLET PO SCH (09:02)
[2021-11-19] MEDS: FluvoxaMINE MALEATE 50 MG TABLET PO SCH (09:03)
== END 2021-11-19 09:00 | disposition home or self-care (01) | DRG 750 ==
LOC: 3EI 18:00
PROVIDERS: ADMIT Psychiatry & Neurology Psychiatry; ATTEND Psychiatry & Neurology Psychiatry
DX: F25.9 Schizoaffective disorder, unspecified (principal); D64.9 Anemia, unspecified; E03.9 Hypothyroidism, unspecified; E66.01 Morbid (severe) obesity due to excess calories; Z68.42 Body mass index [BMI] 45.0-49.9, adult
CPT/HCPCS: 80053; 80164; 80178; 84439; 84443; 85025; 87081; Q0162

== ENCOUNTER 2022-03-27 15:56 | Inpatient (IN) | payer MEDICAID, OTHER ==
[~2022-03-27] VITALS: Ht 170.2 cm; Wt 129.4 kg
[~2022-03-27 15:56] MED LIST changes: +DIVA-112 PO; -FLUV150C2 PO; +FLUV50 PO; -HYDR-4808 PO; -LAMO150T6 PO; -LEVO125 PO; +LEVO50TA11 PO; -LEVO75 PO; +LITH300C3 PO
[2022-03-27 16:44] LABS: BASOPHILS % (AUTO) 0.6 % (0.0-2.0); EOSINOPHILS % (AUTO) 1.3 % (1.0-6.0); HEMATOCRIT 38.3 % (36-46); HEMOGLOBIN 12.5 g/dL (12.0-16.0); LYMPHOCYTES # (AUTO) 2.7 K/uL (1.0-4.8); LYMPHOCYTES % (AUTO) 22.8 % (22.0-44.0); MEAN CORPUSCULAR HEMOGLOBIN 26.9 pg (26.0-34.0); MEAN CORPUSCULAR HGB CONC 32.7 G/dL (31.0-37.0); MEAN CORPUSCULAR VOLUME 82 fL (80-100); MONOCYTES # (AUTO) 0.6 K/uL (0.1-1.0); NEUTROPHILS # (AUTO) 8.3 K/uL (1.8-7.7); NEUTROPHILS % (AUTO) 70.3 % (40.0-70.0); PLATELET COUNT (AUTO) 383 K/uL (150-450); RED BLOOD CELL COUNT(AUTO) 4.66 MIL/uL (4.00-5.20); RED CELL DISTRIBUTION WIDTH 15.4 % (11.5-14.5)
[2022-03-27 17:01] LABS: ANION GAP 7 mmol/L (8-16); CALCIUM, TOTAL 9.2 mg/dL (8.8-10.5); CARBON DIOXIDE 30 mmol/L (22-29); CHLORIDE 101 mmol/L (98-107); CREATININE 0.76 mg/dL (0.60-1.30); GLOMERULAR FILTR. RATE CALC > 60 mL/min (>60); GLUCOSE,RANDOM 105 mg/dL (70-110); POTASSIUM 3.9 mmol/L (3.5-5.1); SODIUM SERUM 138 mmol/L (136-145); UREA NITROGEN, BLOOD 17 mg/dL (7-18)
[2022-03-27 17:07] LABS: ALANINE AMINOTRANSFERASE 14 U/L (12-78); ALBUMIN 3.8 g/dL (3.4-5.0); ALKALINE PHOSPHATASE 106 U/L (46-116); ASPARTATE AMINOTRANSFERASE 14 U/L (15-37); BILIRUBIN,TOTAL 0.3 mg/dL (0.1-1.0); TOTAL PROTEIN, SERUM 7.5 g/dL (6.4-8.2)
[2022-03-27 17:07] LABS: AMPHET/METH SCREEN,URINE NEGATIVE (NEGATIVE); BARBITURATE SCREEN, URINE NEGATIVE (NEGATIVE); BENZODIAZEPINES SCREEN,URINE NEGATIVE (NEGATIVE); CANNABINOID SCREEN,URINE NEGATIVE (NEGATIVE); COCAINE SCREEN,URINE NEGATIVE (NEGATIVE); METHADONE SCREEN, URINE NEGATIVE (NEGATIVE); OPIATE SCREEN,URINE NEGATIVE (NEGATIVE)
[2022-03-27] MEDS ORDERED: LURA60TA PO (17:09)
[2022-03-27 17:14] LABS: ACETAMINOPHEN < 2 mcg/mL (10-30); VALPROIC ACID < 3 mcg/mL (50-100)
[2022-03-27 17:15] LABS: PHENCYCLIDINE SCREEN,URINE NEGATIVE (NEGATIVE)
[2022-03-27 17:22] LABS: SALICYLATE 0.7 mg/dL (2.8-20.0)
[2022-03-27 17:34] LABS: LITHIUM < 0.20 mmol/L (0.60-1.20)
[2022-03-27] MEDS ORDERED: OLANZapine 5 MG RAPDIS TABLET PO PRN (21:15)
[2022-03-27] MEDS ORDERED: LORazepam 2 MG TABLET PO PRN (21:15)
[2022-03-27] MEDS ORDERED: ZOLPIDEM TARTRATE 10 MG TABLET PO PRN (21:15)
[2022-03-27 21:41] LABS: COVID AG,FIA SOURCE NASOPHARYNGEAL
[2022-03-28 00:32] VITALS: BP 141/91
[2022-03-28 07:05] LABS: HEMOGLOBIN 11.9 g/dL (12.0-16.0); MEAN CORPUSCULAR HEMOGLOBIN 27.1 pg (26.0-34.0); MEAN CORPUSCULAR HGB CONC 33.1 G/dL (31.0-37.0); MEAN CORPUSCULAR VOLUME 82 fL (80-100); PLATELET COUNT (AUTO) 336 K/uL (150-450); RED BLOOD CELL COUNT(AUTO) 4.39 MIL/uL (4.00-5.20); RED CELL DISTRIBUTION WIDTH 15.5 % (11.5-14.5)
[2022-03-28 07:23] LABS: ALANINE AMINOTRANSFERASE 14 U/L (12-78); ALBUMIN 3.5 g/dL (3.4-5.0); ALKALINE PHOSPHATASE 93 U/L (46-116); ANION GAP 5 mmol/L (8-16); ASPARTATE AMINOTRANSFERASE 12 U/L (15-37); BILIRUBIN,TOTAL 0.3 mg/dL (0.1-1.0); CALCIUM, TOTAL 9.3 mg/dL (8.8-10.5); CARBON DIOXIDE 31 mmol/L (22-29); CHLORIDE 100 mmol/L (98-107); CHOL/HDL RATIO 2.7 (3.9-5.7); CHOLESTEROL 168 mg/dL (131-200); CREATININE 0.81 mg/dL (0.60-1.30); FREE T4 (FREE THYROXINE) 2.56 ng/dL (0.76-1.46); GLUCOSE,RANDOM 94 mg/dL (70-110); HDL CHOLESTEROL 62 mg/dL (40-60); LDL CHOL (CALC.) 99 mg/dL (0-130); POTASSIUM 3.8 mmol/L (3.5-5.1); SODIUM SERUM 136 mmol/L (136-145); THYROID STIMULATING HORMONE 0.52 uIU/mL (0.36-3.74); TOTAL PROTEIN, SERUM 6.9 g/dL (6.4-8.2); TRIGLYCERIDES 37 mg/dL (15-150); UREA NITROGEN, BLOOD 14 mg/dL (7-18)
[2022-03-28 07:24] LABS: GLOMERULAR FILTR. RATE CALC > 60 mL/min (>60)
[2022-03-28 07:27] LABS: HEMOGLOBIN A1C 5.3 % (3.8-5.6)
[2022-03-28 08:55] VITALS: BP 110/70
[2022-03-28 20:31] VITALS: BP 149/86
[2022-03-28] MEDS ORDERED: LOPERAMIDE HCL 2 MG CAPSULE PO PRN (22:00)
[2022-03-28] MEDS ORDERED: TUBERCULIN, PURIFIED PROTEIN DERIVATIVE 5 TU/0.1 ML SYRINGE ID ONE (22:00)
[2022-03-28] MEDS ORDERED: MAGNESIUM HYDROXIDE SUSPENSION 30 ML UDCUP PO PRN (22:00)
[2022-03-28] MEDS ORDERED: GuaiFENesin/D-METHORPHAN [SUGAR-FREE] 200-20MG/10 ML SYRUP UDCUP PO PRN (22:00)
[2022-03-28] MEDS ORDERED: ACETAMINOPHEN 325 MG TABLET PO PRN (22:00)
[2022-03-28] MEDS ORDERED: HydrOXYzine PAMOATE 50 MG CAPSULE PO PRN (22:00)
[2022-03-28] MEDS ORDERED: LURASIDONE HCL 20 MG TABLET PO PRN (22:00)
[2022-03-28] MEDS ORDERED: PROMETHAZINE HCL 25 MG TABLET PO PRN (22:00)
[2022-03-28] MEDS ORDERED: MAG HYDROX/AL HYDROX/SIMETH ES 30 ML SUSPENSION UDCUP PO PRN (22:00)
[2022-03-29] MEDS ORDERED: LURASIDONE HCL 60 MG TABLET PO SCH (07:00)
[2022-03-29 08:12] VITALS: BP 135/92
[2022-03-29] MEDS: FluvoxaMINE MALEATE 50 MG TABLET PO SCH (08:56)
[2022-03-29] MEDS: LITHIUM CARBONATE 300 MG CAPSULE PO SCH ×4 (08:56→20:44)
[2022-03-29] MEDS: NALTREXONE HCL 50 MG TABLET PO SCH (08:56)
[2022-03-29] MEDS: FOLIC ACID 1 MG TABLET PO SCH (08:56)
[2022-03-29] MEDS: OMEGA-3/DHA/EPA/FISH OIL 1,000 MG CAPSULE PO SCH (08:57)
[2022-03-29] MEDS: MULTIVITAMINS WITH MINERALS, THERAPEUTIC TABLET PO SCH (08:57)
[2022-03-29] MEDS: THIAMINE 100 MG TABLET PO SCH ×2 (08:57→16:40)
[2022-03-29 20:38] VITALS: BP 136/80
[2022-03-29] MEDS: MELATONIN 5 MG TABLET PO SCH (20:45)
[2022-03-30] MEDS ORDERED: LURASIDONE HCL 80 MG TABLET PO SCH (07:00)
[2022-03-30 08:30] VITALS: BP 130/80
[2022-03-30] MEDS: FluvoxaMINE MALEATE 50 MG TABLET PO SCH (09:09)
[2022-03-30] MEDS: LITHIUM CARBONATE 300 MG CAPSULE PO SCH ×4 (09:09→20:29)
[2022-03-30] MEDS: NALTREXONE HCL 50 MG TABLET PO SCH (09:09)
[2022-03-30] MEDS: MULTIVITAMINS WITH MINERALS, THERAPEUTIC TABLET PO SCH (09:09)
[2022-03-30] MEDS: FOLIC ACID 1 MG TABLET PO SCH (09:09)
[2022-03-30] MEDS: THIAMINE 100 MG TABLET PO SCH ×2 (09:09→16:33)
[2022-03-30] MEDS: OMEGA-3/DHA/EPA/FISH OIL 1,000 MG CAPSULE PO SCH (09:09)
[2022-03-30 20:26] VITALS: BP 118/85
[2022-03-30] MEDS: MELATONIN 5 MG TABLET PO SCH (20:30)
[2022-03-31] MEDS: LURASIDONE HCL 60 MG TABLET PO SCH (06:35)
[2022-03-31 08:00] VITALS: BP 116/72
[2022-03-31] MEDS: THIAMINE 100 MG TABLET PO SCH ×2 (08:37→16:19)
[2022-03-31] MEDS: FOLIC ACID 1 MG TABLET PO SCH (08:37)
[2022-03-31] MEDS: LITHIUM CARBONATE 300 MG CAPSULE PO SCH ×4 (08:37→20:15)
[2022-03-31] MEDS: MULTIVITAMINS WITH MINERALS, THERAPEUTIC TABLET PO SCH (08:37)
[2022-03-31] MEDS: FluvoxaMINE MALEATE 50 MG TABLET PO SCH (08:38)
[2022-03-31] MEDS: NALTREXONE HCL 50 MG TABLET PO SCH (08:38)
[2022-03-31] MEDS: OMEGA-3/DHA/EPA/FISH OIL 1,000 MG CAPSULE PO SCH (08:38)
[2022-03-31] MEDS: MELATONIN 5 MG TABLET PO SCH (20:15)
[2022-03-31 21:40] VITALS: BP 115/68
[2022-04-01] MEDS: LURASIDONE HCL 60 MG TABLET PO SCH (06:35)
[2022-04-01 08:17] VITALS: BP 109/64
[2022-04-01] MEDS: NALTREXONE HCL 50 MG TABLET PO SCH (08:39)
[2022-04-01] MEDS: MULTIVITAMINS WITH MINERALS, THERAPEUTIC TABLET PO SCH (08:39)
[2022-04-01] MEDS: FOLIC ACID 1 MG TABLET PO SCH (08:40)
[2022-04-01] MEDS: OMEGA-3/DHA/EPA/FISH OIL 1,000 MG CAPSULE PO SCH (08:40)
[2022-04-01] MEDS: THIAMINE 100 MG TABLET PO SCH ×2 (08:40→16:54)
[2022-04-01] MEDS: FluvoxaMINE MALEATE 50 MG TABLET PO SCH (08:40)
[2022-04-01] MEDS: LITHIUM CARBONATE 300 MG CAPSULE PO SCH ×4 (08:40→20:46)
[2022-04-01 09:41] LABS: GLUCOMETER DEV NAME(LOC) POC.BV
[2022-04-01 20:29] VITALS: BP 107/69
[2022-04-01] MEDS: MELATONIN 5 MG TABLET PO SCH (20:47)
[2022-04-02] MEDS: LURASIDONE HCL 60 MG TABLET PO SCH (07:04)
[2022-04-02 08:36] VITALS: BP 118/90
[2022-04-02] MEDS: NALTREXONE HCL 50 MG TABLET PO SCH (09:51)
[2022-04-02] MEDS: OMEGA-3/DHA/EPA/FISH OIL 1,000 MG CAPSULE PO SCH (09:51)
[2022-04-02] MEDS: LITHIUM CARBONATE 300 MG CAPSULE PO SCH ×4 (09:51→20:40)
[2022-04-02] MEDS: THIAMINE 100 MG TABLET PO SCH ×2 (09:52→16:55)
[2022-04-02] MEDS: MULTIVITAMINS WITH MINERALS, THERAPEUTIC TABLET PO SCH (09:52)
[2022-04-02] MEDS: FluvoxaMINE MALEATE 50 MG TABLET PO SCH (09:52)
[2022-04-02] MEDS: FOLIC ACID 1 MG TABLET PO SCH (09:52)
[2022-04-02 20:24] VITALS: BP 122/62
[2022-04-02] MEDS: MELATONIN 5 MG TABLET PO SCH (20:41)
[2022-04-03] MEDS: LURASIDONE HCL 60 MG TABLET PO SCH (07:02)
[2022-04-03 08:53] VITALS: BP 104/63
[2022-04-03] MEDS: THIAMINE 100 MG TABLET PO SCH ×2 (09:31→16:16)
[2022-04-03] MEDS: FOLIC ACID 1 MG TABLET PO SCH (09:31)
[2022-04-03] MEDS: MULTIVITAMINS WITH MINERALS, THERAPEUTIC TABLET PO SCH (09:31)
[2022-04-03] MEDS: LITHIUM CARBONATE 300 MG CAPSULE PO SCH ×4 (09:31→21:00)
[2022-04-03] MEDS: NALTREXONE HCL 50 MG TABLET PO SCH (09:31)
[2022-04-03] MEDS: OMEGA-3/DHA/EPA/FISH OIL 1,000 MG CAPSULE PO SCH (09:31)
[2022-04-03] MEDS: FluvoxaMINE MALEATE 50 MG TABLET PO SCH (09:32)
[2022-04-03] MEDS ORDERED: LITH600C PO (10:55)
[2022-04-03] MEDS ORDERED: LEVO75 PO (10:55)
[2022-04-03] MEDS: MELATONIN 5 MG TABLET PO SCH (21:00)
[2022-04-04] MEDS: NALTREXONE HCL 50 MG TABLET PO SCH (09:00)
[2022-04-04] MEDS ORDERED: FLUoxetine HCL 20 MG CAPSULE PO SCH (09:00)
[2022-04-04] MEDS: MULTIVITAMINS WITH MINERALS, THERAPEUTIC TABLET PO SCH (09:00)
[2022-04-04] MEDS ORDERED: FluvoxaMINE MALEATE 50 MG TABLET PO SCH (09:00)
[2022-04-04] MEDS: FOLIC ACID 1 MG TABLET PO SCH (09:00)
[2022-04-04] MEDS: LITHIUM CARBONATE 300 MG CAPSULE PO SCH ×2 (09:00→13:00)
[2022-04-04] MEDS: OMEGA-3/DHA/EPA/FISH OIL 1,000 MG CAPSULE PO SCH (09:00)
[2022-04-04] MEDS: THIAMINE 100 MG TABLET PO SCH (09:00)
== END 2022-04-04 19:59 | disposition home or self-care (01) | DRG 753 ==
LOC: EMS 15:59 → UNDOADMIN 20:30 → B2S 20:30 → B3A 20:30 → UNDOADMIN 21:10 → 3EI 21:10
PROVIDERS: ADMIT Psychiatry & Neurology Psychiatry; ATTEND Psychiatry & Neurology Psychiatry
DX: F31.9 Bipolar disorder, unspecified (principal); D64.9 Anemia, unspecified; Z20.822 Contact with and (suspected) exposure to COVID-19; D72.829 Elevated white blood cell count, unspecified; E03.9 Hypothyroidism, unspecified; Z55.9 Problems related to education and literacy, unspecified; Z59.9 Problem related to housing and economic circumstances, unspecified; Z63.9 Problem related to primary support group, unspecified; Z65.3 Problems related to other legal circumstances; Z88.0 Allergy status to penicillin; Z91.51 Personal history of suicidal behavior
CPT/HCPCS: 80053; 80061; 80164; 80178; 83036; 84439; 84443; 85007; 85025; 85027; 86592; 87081; 99285; G0480; G0481; Q9967

== ENCOUNTER 2022-04-03 19:24 | Inpatient (IN) | payer MEDICAID, OTHER ==
[~2022-04-03] VITALS: Ht 170.2 cm; Wt 123.4 kg
[~2022-04-03 19:24] MED LIST changes: +LEVO75 PO; +LITH600C PO; +LURA60TA PO
[2022-04-03] MEDS ORDERED: LevETIRAcetam 1,000 MG in DEXTROSE 5%-WATER 100 ML IV ONE (22:15)
[2022-04-03 22:32] LABS: BASOPHILS % (AUTO) 0.3 % (0.0-2.0); EOSINOPHILS % (AUTO) 1.2 % (1.0-6.0); HEMATOCRIT 35.1 % (36-46); HEMOGLOBIN 11.4 g/dL (12.0-16.0); LYMPHOCYTES # (AUTO) 2.2 K/uL (1.0-4.8); LYMPHOCYTES % (AUTO) 12.8 % (22.0-44.0); MEAN CORPUSCULAR HEMOGLOBIN 26.3 pg (26.0-34.0); MEAN CORPUSCULAR HGB CONC 32.5 G/dL (31.0-37.0); MEAN CORPUSCULAR VOLUME 81 fL (80-100); MONOCYTES # (AUTO) 0.9 K/uL (0.1-1.0); MONOCYTES % (AUTO) 5.2 % (2.0-9.0); NEUTROPHILS # (AUTO) 13.8 K/uL (1.8-7.7); NEUTROPHILS % (AUTO) 80.5 % (40.0-70.0); PLATELET COUNT (AUTO) 333 K/uL (150-450); RED BLOOD CELL COUNT(AUTO) 4.33 MIL/uL (4.00-5.20); RED CELL DISTRIBUTION WIDTH 15.3 % (11.5-14.5)
[2022-04-03 22:48] LABS: ANION GAP 0 mmol/L (8-16); CALCIUM, TOTAL 9.7 mg/dL (8.8-10.5); CARBON DIOXIDE 32 mmol/L (22-29); CHLORIDE 103 mmol/L (98-107); CREATININE 0.83 mg/dL (0.60-1.30); GLUCOSE,RANDOM 113 mg/dL (70-110); POTASSIUM 3.9 mmol/L (3.5-5.1); SODIUM SERUM 135 mmol/L (136-145); UREA NITROGEN, BLOOD 18 mg/dL (7-18)
[2022-04-03 22:49] LABS: B-TYPE NATRIURETIC PEPTIDE 11 pg/mL (0-100)
[2022-04-03 22:50] LABS: GLOMERULAR FILTR. RATE CALC > 60 mL/min (>60)
[2022-04-03 22:51] LABS: COVID AG,FIA SOURCE NASOPHARYNGEAL
[2022-04-03 22:52] LABS: LITHIUM 0.72 mmol/L (0.60-1.20)
[2022-04-03 22:55] LABS: ALANINE AMINOTRANSFERASE 18 U/L (12-78); ALBUMIN 3.7 g/dL (3.4-5.0); ALKALINE PHOSPHATASE 90 U/L (46-116); ASPARTATE AMINOTRANSFERASE 13 U/L (15-37); BILIRUBIN,TOTAL 0.3 mg/dL (0.1-1.0); CREATINE KINASE, TOTAL ONLY 63 U/L (26-192); TOTAL PROTEIN, SERUM 7.3 g/dL (6.4-8.2)
[2022-04-03 22:58] LABS: SALICYLATE 0.7 mg/dL (2.8-20.0)
[2022-04-04] MEDS ORDERED: ONDANSETRON HCL 4 MG/2 ML VIAL IVP PRN (00:45)
[2022-04-04 02:01] LABS: HCG,QUANTITATIVE < 1 mIU/mL (0-6)
[2022-04-04 06:19] LABS: APPEARANCE,URINE CLEAR (CLEAR); BILIRUBIN,URINE NEGATIVE (NEGATIVE); GLUCOSE, URINE (UA) NEGATIVE (NEGATIVE); KETONES,URINE NEGATIVE (NEGATIVE); LEUKOCYTE ESTERASE ,URINE NEGATIVE (NEGATIVE); NITRATE,URINE NEGATIVE (NEGATIVE); OCCULT BLOOD,URINE NEGATIVE (NEGATIVE); PROTEIN,URINE NEGATIVE (NEGATIVE); SPECIFIC GRAVITIY, URINE 1.013 (1.003-1.030); UROBILINOGEN,URINE <=1.0 mg/dL (<=1.0)
[2022-04-04 06:26] LABS: AMPHET/METH SCREEN,URINE NEGATIVE (NEGATIVE); BARBITURATE SCREEN, URINE NEGATIVE (NEGATIVE); BENZODIAZEPINES SCREEN,URINE NEGATIVE (NEGATIVE); CANNABINOID SCREEN,URINE NEGATIVE (NEGATIVE); COCAINE SCREEN,URINE NEGATIVE (NEGATIVE); METHADONE SCREEN, URINE NEGATIVE (NEGATIVE); OPIATE SCREEN,URINE NEGATIVE (NEGATIVE)
[2022-04-04 06:29] LABS: PHENCYCLIDINE SCREEN,URINE NEGATIVE (NEGATIVE)
[2022-04-04] MEDS: LEVOTHYROXINE SODIUM 75 MCG TABLET PO SCH (07:03)
[2022-04-04] MEDS: DIVALPROEX SODIUM 500 MG DR TABLET PO SCH (09:41)
[2022-04-04] MEDS: FluvoxaMINE MALEATE 50 MG TABLET PO SCH (09:41)
[2022-04-04] MEDS: LevETIRAcetam 500 MG in DEXTROSE 5%-WATER 100 ML IV SCH ×2 (09:52→21:55)
[2022-04-04 20:30] VITALS: BP 110/61
[2022-04-04] MEDS ORDERED: SODIUM CHLORIDE 0.9% 500 ML IV ONE (21:44)
[2022-04-04] MEDS: LURASIDONE HCL 60 MG TABLET PO SCH (23:00)
[2022-04-04] MEDS: LITHIUM CARBONATE 600 MG CAPSULE PO SCH (23:00)
[2022-04-05 00:17] VITALS: BP 118/64
[2022-04-05] MEDS: DIVALPROEX SODIUM 500 MG DR TABLET PO SCH ×3 (01:51→21:31)
[2022-04-05 04:53] VITALS: BP 106/60
[2022-04-05 05:51] LABS: BASOPHILS % (AUTO) 0.6 % (0.0-2.0); EOSINOPHILS % (AUTO) 1.8 % (1.0-6.0); HEMATOCRIT 35.5 % (36-46); LYMPHOCYTES # (AUTO) 1.4 K/uL (1.0-4.8); LYMPHOCYTES % (AUTO) 14.2 % (22.0-44.0); MEAN CORPUSCULAR HEMOGLOBIN 27.6 pg (26.0-34.0); MEAN CORPUSCULAR HGB CONC 33.9 G/dL (31.0-37.0); MEAN CORPUSCULAR VOLUME 81 fL (80-100); MONOCYTES % (AUTO) 10.1 % (2.0-9.0); NEUTROPHILS # (AUTO) 7.4 K/uL (1.8-7.7); NEUTROPHILS % (AUTO) 73.3 % (40.0-70.0); PLATELET COUNT (AUTO) 264 K/uL (150-450); RED BLOOD CELL COUNT(AUTO) 4.37 MIL/uL (4.00-5.20); RED CELL DISTRIBUTION WIDTH 15.5 % (11.5-14.5)
[2022-04-05 06:09] LABS: ALANINE AMINOTRANSFERASE 14 U/L (12-78); ALBUMIN 3.6 g/dL (3.4-5.0); ALKALINE PHOSPHATASE 94 U/L (46-116); ANION GAP 6 mmol/L (8-16); ASPARTATE AMINOTRANSFERASE 10 U/L (15-37); BILIRUBIN,TOTAL 0.6 mg/dL (0.1-1.0); CALCIUM, TOTAL 9.3 mg/dL (8.8-10.5); CARBON DIOXIDE 29 mmol/L (22-29); CHLORIDE 101 mmol/L (98-107); GLUCOSE,RANDOM 96 mg/dL (70-110); SODIUM SERUM 136 mmol/L (136-145); TOTAL PROTEIN, SERUM 7.1 g/dL (6.4-8.2); UREA NITROGEN, BLOOD 9 mg/dL (7-18)
[2022-04-05 06:12] LABS: GLOMERULAR FILTR. RATE CALC > 60 mL/min (>60)
[2022-04-05] MEDS: LEVOTHYROXINE SODIUM 75 MCG TABLET PO SCH (06:22)
[2022-04-05] MEDS: HEPARIN SODIUM,PORCINE 5,000 UNITS/ML VIAL SQ SCH ×3 (09:27→18:34)
[2022-04-05] MEDS: FluvoxaMINE MALEATE 50 MG TABLET PO SCH (09:28)
[2022-04-05] MEDS: LevETIRAcetam 500 MG in DEXTROSE 5%-WATER 100 ML IV SCH ×2 (09:31→21:31)
[2022-04-05 09:40] VITALS: BP 112/76
[2022-04-05 16:15] VITALS: BP 105/52
[2022-04-05 20:09] VITALS: BP 115/71
[2022-04-05] MEDS: LITHIUM CARBONATE 600 MG CAPSULE PO SCH (21:31)
[2022-04-05] MEDS: LURASIDONE HCL 60 MG TABLET PO SCH (21:31)
[2022-04-05 23:30] VITALS: BP 121/75
[2022-04-06] MEDS: HEPARIN SODIUM,PORCINE 5,000 UNITS/ML VIAL SQ SCH ×3 (00:53→17:03)
[2022-04-06 04:45] VITALS: BP 117/76
[2022-04-06 06:00] LABS: BASOPHILS % (AUTO) 0.7 % (0.0-2.0); EOSINOPHILS % (AUTO) 1.7 % (1.0-6.0); HEMATOCRIT 36.6 % (36-46); HEMOGLOBIN 12.3 g/dL (12.0-16.0); LYMPHOCYTES # (AUTO) 2.2 K/uL (1.0-4.8); LYMPHOCYTES % (AUTO) 25.3 % (22.0-44.0); MEAN CORPUSCULAR HEMOGLOBIN 27.9 pg (26.0-34.0); MEAN CORPUSCULAR HGB CONC 33.7 G/dL (31.0-37.0); MEAN CORPUSCULAR VOLUME 83 fL (80-100); MONOCYTES % (AUTO) 11.4 % (2.0-9.0); NEUTROPHILS # (AUTO) 5.4 K/uL (1.8-7.7); NEUTROPHILS % (AUTO) 60.9 % (40.0-70.0); PLATELET COUNT (AUTO) 254 K/uL (150-450); RED BLOOD CELL COUNT(AUTO) 4.43 MIL/uL (4.00-5.20); RED CELL DISTRIBUTION WIDTH 15.6 % (11.5-14.5)
[2022-04-06] MEDS: LEVOTHYROXINE SODIUM 75 MCG TABLET PO SCH (06:08)
[2022-04-06 06:15] LABS: ALANINE AMINOTRANSFERASE 15 U/L (12-78); ALBUMIN 3.7 g/dL (3.4-5.0); ALKALINE PHOSPHATASE 94 U/L (46-116); ANION GAP 3 mmol/L (8-16); ASPARTATE AMINOTRANSFERASE 10 U/L (15-37); BILIRUBIN,TOTAL 0.5 mg/dL (0.1-1.0); CALCIUM, TOTAL 9.5 mg/dL (8.8-10.5); CARBON DIOXIDE 34 mmol/L (22-29); CHLORIDE 101 mmol/L (98-107); CREATININE 0.85 mg/dL (0.60-1.30); GLUCOSE,RANDOM 85 mg/dL (70-110); POTASSIUM 3.9 mmol/L (3.5-5.1); SODIUM SERUM 138 mmol/L (136-145); TOTAL PROTEIN, SERUM 7.7 g/dL (6.4-8.2); UREA NITROGEN, BLOOD 8 mg/dL (7-18); VALPROIC ACID 65 mcg/mL (50-100)
[2022-04-06 06:30] LABS: GLOMERULAR FILTR. RATE CALC > 60 mL/min (>60)
[2022-04-06 08:00] VITALS: BP 101/59
[2022-04-06] MEDS: DIVALPROEX SODIUM 500 MG DR TABLET PO SCH ×2 (09:08→22:07)
[2022-04-06] MEDS: FluvoxaMINE MALEATE 50 MG TABLET PO SCH (09:08)
[2022-04-06] MEDS: ACETAMINOPHEN 325 MG TABLET PO PRN (09:15)
[2022-04-06] MEDS ORDERED: GADOTERATE MEGLUMINE 10 MMOL/20 ML VIAL IVP ONE (12:04)
[2022-04-06 12:30] VITALS: BP 140/90
[2022-04-06] MEDS: LevETIRAcetam 500 MG in DEXTROSE 5%-WATER 100 ML IV SCH ×2 (13:28→22:08)
[2022-04-06 15:59] VITALS: BP 118/70
[2022-04-06] MEDS: GuaiFENesin/D-METHORPHAN [SUGAR-FREE] 200-20MG/10 ML SYRUP UDCUP PO PRN ×2 (18:21→22:07)
[2022-04-06 19:15] VITALS: BP 107/65
[2022-04-06] MEDS: LURASIDONE HCL 60 MG TABLET PO SCH (22:07)
[2022-04-06] MEDS: LITHIUM CARBONATE 600 MG CAPSULE PO SCH (22:07)
[2022-04-07] VITALS: BP 128/79
[2022-04-07] MEDS: BENZOCAINE/MENTHOL LOZENGE [6 LOZENGES/PACKET] PO PRN ×3 (00:59→20:50)
[2022-04-07 05:18] VITALS: BP 106/64
[2022-04-07 06:35] LABS: BASOPHILS % (AUTO) 0.4 % (0.0-2.0); EOSINOPHILS % (AUTO) 2.1 % (1.0-6.0); HEMATOCRIT 36.3 % (36-46); LYMPHOCYTES # (AUTO) 2.6 K/uL (1.0-4.8); LYMPHOCYTES % (AUTO) 28.2 % (22.0-44.0); MEAN CORPUSCULAR HEMOGLOBIN 27.2 pg (26.0-34.0); MEAN CORPUSCULAR HGB CONC 33.1 G/dL (31.0-37.0); MEAN CORPUSCULAR VOLUME 82 fL (80-100); MONOCYTES # (AUTO) 0.9 K/uL (0.1-1.0); MONOCYTES % (AUTO) 9.8 % (2.0-9.0); NEUTROPHILS # (AUTO) 5.5 K/uL (1.8-7.7); NEUTROPHILS % (AUTO) 59.5 % (40.0-70.0); PLATELET COUNT (AUTO) 261 K/uL (150-450); RED BLOOD CELL COUNT(AUTO) 4.41 MIL/uL (4.00-5.20); RED CELL DISTRIBUTION WIDTH 15.9 % (11.5-14.5)
[2022-04-07 06:42] LABS: ANION GAP 7 mmol/L (8-16); CALCIUM, TOTAL 9.2 mg/dL (8.8-10.5); CARBON DIOXIDE 31 mmol/L (22-29); CHLORIDE 101 mmol/L (98-107); CREATININE 0.78 mg/dL (0.60-1.30); GLOMERULAR FILTR. RATE CALC > 60 mL/min (>60); GLUCOSE,RANDOM 87 mg/dL (70-110); POTASSIUM 3.9 mmol/L (3.5-5.1); SODIUM SERUM 139 mmol/L (136-145); UREA NITROGEN, BLOOD 8 mg/dL (7-18)
[2022-04-07] MEDS: LEVOTHYROXINE SODIUM 75 MCG TABLET PO SCH (06:52)
[2022-04-07 08:07] VITALS: BP 104/65
[2022-04-07] MEDS: DIVALPROEX SODIUM 500 MG DR TABLET PO SCH ×2 (08:28→20:49)
[2022-04-07] MEDS: FluvoxaMINE MALEATE 50 MG TABLET PO SCH (08:28)
[2022-04-07] MEDS: HEPARIN SODIUM,PORCINE 5,000 UNITS/ML VIAL SQ SCH ×3 (08:28→17:25)
[2022-04-07] MEDS: LevETIRAcetam 500 MG in DEXTROSE 5%-WATER 100 ML IV SCH ×2 (11:17→21:28)
[2022-04-07] MEDS: ACETAMINOPHEN 325 MG TABLET PO PRN (11:22)
[2022-04-07] MEDS: FLUoxetine HCL 20 MG CAPSULE PO SCH (13:00)
[2022-04-07 16:00] VITALS: BP 106/64
[2022-04-07] MEDS: LURASIDONE HCL 60 MG TABLET PO SCH (17:25)
[2022-04-07] MEDS: LITHIUM CARBONATE 600 MG CAPSULE PO SCH (20:49)
[2022-04-07 21:27] VITALS: BP 125/84
[2022-04-07] MEDS: GuaiFENesin/D-METHORPHAN [SUGAR-FREE] 200-20MG/10 ML SYRUP UDCUP PO PRN (23:09)
[2022-04-08 00:30] VITALS: BP 115/75
[2022-04-08] MEDS: HEPARIN SODIUM,PORCINE 5,000 UNITS/ML VIAL SQ SCH ×3 (00:32→16:44)
[2022-04-08 05:00] VITALS: BP 120/77
[2022-04-08] MEDS: GuaiFENesin/D-METHORPHAN [SUGAR-FREE] 200-20MG/10 ML SYRUP UDCUP PO PRN ×3 (05:10→22:12)
[2022-04-08] MEDS: LEVOTHYROXINE SODIUM 75 MCG TABLET PO SCH (06:36)
[2022-04-08 08:01] VITALS: BP 109/67
[2022-04-08] MEDS: LevETIRAcetam 500 MG in DEXTROSE 5%-WATER 100 ML IV SCH (09:34)
[2022-04-08] MEDS: FluvoxaMINE MALEATE 50 MG TABLET PO SCH (09:34)
[2022-04-08] MEDS: FLUoxetine HCL 20 MG CAPSULE PO SCH (09:34)
[2022-04-08] MEDS: DIVALPROEX SODIUM 500 MG DR TABLET PO SCH ×2 (09:34→21:25)
[2022-04-08] MEDS ORDERED: SODIUM CHLORIDE 0.9% 500 ML IV ONE (09:37)
[2022-04-08 12:00] VITALS: BP 107/72
[2022-04-08 16:09] VITALS: BP 124/75
[2022-04-08] MEDS: LURASIDONE HCL 60 MG TABLET PO SCH (16:44)
[2022-04-08 20:14] VITALS: BP 129/67
[2022-04-08] MEDS: LITHIUM CARBONATE 600 MG CAPSULE PO SCH (21:25)
[2022-04-09 00:36] VITALS: BP 124/72
[2022-04-09] MEDS: LevETIRAcetam 500 MG in DEXTROSE 5%-WATER 100 ML IV SCH ×2 (00:59→10:00)
[2022-04-09] MEDS: HEPARIN SODIUM,PORCINE 5,000 UNITS/ML VIAL SQ SCH ×4 (01:00→23:17)
[2022-04-09 05:38] VITALS: BP 114/71
[2022-04-09] MEDS: GuaiFENesin/D-METHORPHAN [SUGAR-FREE] 200-20MG/10 ML SYRUP UDCUP PO PRN ×2 (06:30→20:51)
[2022-04-09 08:00] VITALS: BP 99/70
[2022-04-09] MEDS: DIVALPROEX SODIUM 500 MG DR TABLET PO SCH ×2 (09:41→20:51)
[2022-04-09] MEDS: FluvoxaMINE MALEATE 50 MG TABLET PO SCH (09:41)
[2022-04-09] MEDS: FLUoxetine HCL 20 MG CAPSULE PO SCH (09:42)
[2022-04-09 12:02] VITALS: BP 123/67
[2022-04-09] MEDS ORDERED: LevETIRAcetam 500 MG TABLET PO ONE (13:45)
[2022-04-09 16:22] VITALS: BP 99/58
[2022-04-09] MEDS: LURASIDONE HCL 60 MG TABLET PO SCH (17:16)
[2022-04-09] MEDS: LITHIUM CARBONATE 600 MG CAPSULE PO SCH (20:51)
[2022-04-09] MEDS: LevETIRAcetam 500 MG TABLET PO SCH (20:51)
[2022-04-09 20:57] VITALS: BP 129/72
[2022-04-10 00:03] VITALS: BP 138/89
[2022-04-10 06:11] VITALS: BP 127/76
[2022-04-10] MEDS: LEVOTHYROXINE SODIUM 75 MCG TABLET PO SCH ×2 (06:44→08:46)
[2022-04-10 08:14] VITALS: BP 97/59
[2022-04-10] MEDS: FLUoxetine HCL 20 MG CAPSULE PO SCH (08:46)
[2022-04-10] MEDS: LevETIRAcetam 500 MG TABLET PO SCH ×2 (08:46→20:28)
[2022-04-10] MEDS: HEPARIN SODIUM,PORCINE 5,000 UNITS/ML VIAL SQ SCH ×2 (08:46→17:37)
[2022-04-10] MEDS: DIVALPROEX SODIUM 500 MG DR TABLET PO SCH ×2 (08:46→20:28)
[2022-04-10] MEDS: FluvoxaMINE MALEATE 50 MG TABLET PO SCH (08:47)
[2022-04-10] MEDS: GuaiFENesin/D-METHORPHAN [SUGAR-FREE] 200-20MG/10 ML SYRUP UDCUP PO PRN ×3 (09:46→20:40)
[2022-04-10 12:18] VITALS: BP 111/64
[2022-04-10 16:00] VITALS: BP 99/59
[2022-04-10] MEDS: LURASIDONE HCL 60 MG TABLET PO SCH (17:29)
[2022-04-10] MEDS: LITHIUM CARBONATE 600 MG CAPSULE PO SCH (20:28)
[2022-04-10 20:44] VITALS: BP 129/90
[2022-04-11] MEDS: HEPARIN SODIUM,PORCINE 5,000 UNITS/ML VIAL SQ SCH ×3 (01:05→19:03)
[2022-04-11 01:12] VITALS: BP 132/99
[2022-04-11 06:27] VITALS: BP 126/84
[2022-04-11] MEDS: LEVOTHYROXINE SODIUM 75 MCG TABLET PO SCH (06:35)
[2022-04-11] MEDS: DIVALPROEX SODIUM 500 MG DR TABLET PO SCH ×2 (07:48→20:56)
[2022-04-11] MEDS: FLUoxetine HCL 20 MG CAPSULE PO SCH (07:48)
[2022-04-11] MEDS: LevETIRAcetam 500 MG TABLET PO SCH ×2 (07:48→20:56)
[2022-04-11] MEDS: FluvoxaMINE MALEATE 50 MG TABLET PO SCH (07:48)
[2022-04-11 07:56] VITALS: BP 130/79
[2022-04-11 12:01] VITALS: BP 125/75
[2022-04-11 12:23] LABS: COVID AG,FIA SOURCE NASAL SWAB
[2022-04-11 16:10] VITALS: BP 107/55
[2022-04-11 19:33] VITALS: BP 119/70
[2022-04-11] MEDS: LURASIDONE HCL 60 MG TABLET PO SCH (20:56)
[2022-04-11] MEDS: LITHIUM CARBONATE 600 MG CAPSULE PO SCH (20:56)
[2022-04-12 00:10] VITALS: BP 104/53
[2022-04-12 05:40] VITALS: BP 115/63
[2022-04-12] MEDS: LEVOTHYROXINE SODIUM 75 MCG TABLET PO SCH (06:40)
[2022-04-12 07:44] VITALS: BP 103/69
[2022-04-12] MEDS: LevETIRAcetam 500 MG TABLET PO SCH ×2 (09:41→20:19)
[2022-04-12] MEDS: DIVALPROEX SODIUM 500 MG DR TABLET PO SCH ×2 (09:41→20:19)
[2022-04-12] MEDS: HEPARIN SODIUM,PORCINE 5,000 UNITS/ML VIAL SQ SCH ×4 (09:41→23:46)
[2022-04-12] MEDS: FLUoxetine HCL 20 MG CAPSULE PO SCH (09:41)
[2022-04-12] MEDS: FluvoxaMINE MALEATE 50 MG TABLET PO SCH (09:41)
[2022-04-12] MEDS: GuaiFENesin/D-METHORPHAN [SUGAR-FREE] 200-20MG/10 ML SYRUP UDCUP PO PRN (09:47)
[2022-04-12 15:01] VITALS: BP 118/62
[2022-04-12 15:16] VITALS: BP 118/62
[2022-04-12] MEDS: LURASIDONE HCL 60 MG TABLET PO SCH (17:52)
[2022-04-12 19:44] VITALS: BP 103/68
[2022-04-12] MEDS: LITHIUM CARBONATE 600 MG CAPSULE PO SCH (20:19)
[2022-04-13] MEDS: GuaiFENesin/D-METHORPHAN [SUGAR-FREE] 200-20MG/10 ML SYRUP UDCUP PO PRN (03:56)
[2022-04-13 04:10] VITALS: BP 118/86
[2022-04-13] MEDS: LEVOTHYROXINE SODIUM 75 MCG TABLET PO SCH (06:17)
[2022-04-13 08:24] VITALS: BP 103/59
[2022-04-13] MEDS: FluvoxaMINE MALEATE 50 MG TABLET PO SCH (08:38)
[2022-04-13] MEDS: FLUoxetine HCL 20 MG CAPSULE PO SCH (08:38)
[2022-04-13] MEDS: LevETIRAcetam 500 MG TABLET PO SCH ×2 (08:38→19:59)
[2022-04-13] MEDS: DIVALPROEX SODIUM 500 MG DR TABLET PO SCH ×2 (08:38→19:59)
[2022-04-13] MEDS: HEPARIN SODIUM,PORCINE 5,000 UNITS/ML VIAL SQ SCH ×3 (08:38→23:40)
[2022-04-13 15:13] VITALS: BP 107/62
[2022-04-13] MEDS: LURASIDONE HCL 60 MG TABLET PO SCH (18:12)
[2022-04-13] MEDS: LITHIUM CARBONATE 600 MG CAPSULE PO SCH (19:59)
[2022-04-13 20:33] VITALS: BP 111/69
[2022-04-14 04:18] VITALS: BP 111/59
[2022-04-14] MEDS: LEVOTHYROXINE SODIUM 75 MCG TABLET PO SCH (06:03)
[2022-04-14] MEDS: HEPARIN SODIUM,PORCINE 5,000 UNITS/ML VIAL SQ SCH ×2 (08:03→17:11)
[2022-04-14] MEDS: FLUoxetine HCL 20 MG CAPSULE PO SCH (08:03)
[2022-04-14] MEDS: LevETIRAcetam 500 MG TABLET PO SCH ×2 (08:03→21:39)
[2022-04-14] MEDS: DIVALPROEX SODIUM 500 MG DR TABLET PO SCH ×2 (08:03→21:39)
[2022-04-14] MEDS: FluvoxaMINE MALEATE 50 MG TABLET PO SCH (08:06)
[2022-04-14 08:13] VITALS: BP 119/62
[2022-04-14 11:47] LABS: COVID AG,FIA SOURCE NASAL SWAB
[2022-04-14 15:15] VITALS: BP 126/86
[2022-04-14] MEDS: LURASIDONE HCL 60 MG TABLET PO SCH (17:11)
[2022-04-14 21:30] VITALS: BP 137/88
[2022-04-14] MEDS: LITHIUM CARBONATE 600 MG CAPSULE PO SCH (21:39)
[2022-04-15 03:30] VITALS: BP 125/78
[2022-04-15] MEDS: LEVOTHYROXINE SODIUM 75 MCG TABLET PO SCH (07:00)
[2022-04-15 08:19] VITALS: BP 134/83
[2022-04-15] MEDS: LevETIRAcetam 500 MG TABLET PO SCH ×2 (09:37→21:22)
[2022-04-15] MEDS: DIVALPROEX SODIUM 500 MG DR TABLET PO SCH ×2 (09:37→21:22)
[2022-04-15] MEDS: FLUoxetine HCL 20 MG CAPSULE PO SCH (09:37)
[2022-04-15] MEDS: FluvoxaMINE MALEATE 50 MG TABLET PO SCH (09:37)
[2022-04-15] MEDS: HEPARIN SODIUM,PORCINE 5,000 UNITS/ML VIAL SQ SCH ×3 (09:38→16:00)
[2022-04-15 15:17] VITALS: BP 109/62
[2022-04-15] MEDS: LURASIDONE HCL 60 MG TABLET PO SCH (19:27)
[2022-04-15 20:30] VITALS: BP 115/67
[2022-04-15] MEDS: LITHIUM CARBONATE 600 MG CAPSULE PO SCH (21:22)
[2022-04-16] MEDS: HEPARIN SODIUM,PORCINE 5,000 UNITS/ML VIAL SQ SCH ×3 (00:48→16:51)
[2022-04-16 05:00] VITALS: BP 108/68
[2022-04-16] MEDS: LEVOTHYROXINE SODIUM 75 MCG TABLET PO SCH (06:37)
[2022-04-16 08:12] VITALS: BP 115/70
[2022-04-16] MEDS: FLUoxetine HCL 20 MG CAPSULE PO SCH (08:20)
[2022-04-16] MEDS: LevETIRAcetam 500 MG TABLET PO SCH ×2 (08:20→21:10)
[2022-04-16] MEDS: FluvoxaMINE MALEATE 50 MG TABLET PO SCH (08:20)
[2022-04-16] MEDS: DIVALPROEX SODIUM 500 MG DR TABLET PO SCH ×2 (08:21→21:10)
[2022-04-16 17:24] VITALS: BP 107/69
[2022-04-16] MEDS: LURASIDONE HCL 60 MG TABLET PO SCH (17:31)
[2022-04-16] MEDS: LITHIUM CARBONATE 600 MG CAPSULE PO SCH (21:10)
[2022-04-16 21:15] VITALS: BP 107/61
[2022-04-17] MEDS: HEPARIN SODIUM,PORCINE 5,000 UNITS/ML VIAL SQ SCH ×3 (00:10→17:13)
[2022-04-17 04:16] VITALS: BP 131/86
[2022-04-17] MEDS: LEVOTHYROXINE SODIUM 75 MCG TABLET PO SCH (05:56)
[2022-04-17 08:00] VITALS: BP 120/69
[2022-04-17] MEDS: DIVALPROEX SODIUM 500 MG DR TABLET PO SCH (08:33)
[2022-04-17] MEDS: LevETIRAcetam 500 MG TABLET PO SCH (08:34)
[2022-04-17] MEDS: FluvoxaMINE MALEATE 50 MG TABLET PO SCH (08:34)
[2022-04-17] MEDS: FLUoxetine HCL 20 MG CAPSULE PO SCH (08:35)
[2022-04-17 12:22] VITALS: BP 125/80
[2022-04-17 16:13] VITALS: BP 101/67
[2022-04-17 16:19] LABS: COVID AG,FIA SOURCE NASAL SWAB
[2022-04-17] MEDS: LURASIDONE HCL 60 MG TABLET PO SCH (17:09)
[2022-04-17 19:45] VITALS: BP 103/65
== END 2022-04-17 20:30 | DRG 53 ==
LOC: EMS 19:31 → 5N 04-04 20:30 → 6N 04-12 01:35
PROVIDERS: ADMIT Internal Medicine; ATTEND Internal Medicine
PROC: 4A00X4Z Measurement of Central Nervous Electrical Activity, External Approach (ICD-10-PCS; principal; 2022-04-04)
DX: R56.9 Unspecified convulsions (principal); U07.1 COVID-19; R65.10 Systemic inflammatory response syndrome (SIRS) of non-infectious origin without acute organ dysfunction; F25.9 Schizoaffective disorder, unspecified; F32.9 Major depressive disorder, single episode, unspecified; D72.829 Elevated white blood cell count, unspecified; E03.9 Hypothyroidism, unspecified; E66.01 Morbid (severe) obesity due to excess calories; F91.9 Conduct disorder, unspecified; Z68.41 Body mass index [BMI] 40.0-44.9, adult; Z88.0 Allergy status to penicillin; Z88.8 Allergy status to other drugs, medicaments and biological substances
CPT/HCPCS: 70450; 70553; 71045; 80048; 80053; 80164; 80178; 81003; 82550; 83880; 84145; 84484; 84702; 85025; 93005; 95816; 99285; G0480; G0482; J0712; J1644; J7040; J7060; Q9967; 36415-L1; 36415-TC

== ENCOUNTER 2022-04-17 15:23 | Inpatient (IN) | payer MEDICAID ==
[~2022-04-17] VITALS: Ht 167.6 cm; Wt 128.8 kg
[~2022-04-17 15:23] MED LIST changes: -LEVO50TA11 PO; -LITH300C3 PO
[2022-04-17] MEDS ORDERED: ACETAMINOPHEN 325 MG TABLET PO PRN ×2 (21:15→21:30)
[2022-04-17] MEDS ORDERED: LOPERAMIDE HCL 2 MG CAPSULE PO PRN ×2 (21:15→21:30)
[2022-04-17] MEDS ORDERED: MAGNESIUM HYDROXIDE SUSPENSION 30 ML UDCUP PO PRN ×2 (21:15→21:30)
[2022-04-17] MEDS ORDERED: HALOPERIDOL 5 MG TABLET PO PRN (21:15)
[2022-04-17] MEDS ORDERED: MAG HYDROX/AL HYDROX/SIMETH ES 30 ML SUSPENSION UDCUP PO PRN ×2 (21:15→21:30)
[2022-04-17] MEDS ORDERED: ZOLPIDEM TARTRATE 10 MG TABLET PO PRN (21:15)
[2022-04-17] MEDS ORDERED: HydrOXYzine PAMOATE 50 MG CAPSULE PO PRN (21:30)
[2022-04-17] MEDS ORDERED: GuaiFENesin/D-METHORPHAN [SUGAR-FREE] 200-20MG/10 ML SYRUP UDCUP PO PRN (21:30)
[2022-04-17] MEDS ORDERED: PROMETHAZINE HCL 25 MG TABLET PO PRN (21:30)
[2022-04-17] MEDS ORDERED: LURASIDONE HCL 20 MG TABLET PO PRN (21:30)
[2022-04-17 21:32] VITALS: BP 129/79
[2022-04-18 06:37] LABS: FREE T4 (FREE THYROXINE) 0.93 ng/dL (0.76-1.46); THYROID STIMULATING HORMONE 0.47 uIU/mL (0.36-3.74)
[2022-04-18] MEDS: LURASIDONE HCL 80 MG TABLET PO SCH (06:40)
[2022-04-18 06:59] LABS: LITHIUM 0.27 mmol/L (0.60-1.20)
[2022-04-18] MEDS ORDERED: LURASIDONE HCL 60 MG TABLET PO SCH (07:30)
[2022-04-18 08:00] VITALS: BP 134/88
[2022-04-18] MEDS ORDERED: LITHIUM CARBONATE 300 MG CAPSULE PO SCH (09:00)
[2022-04-18] MEDS ORDERED: FLUoxetine HCL 20 MG CAPSULE PO SCH ×2 (09:00)
[2022-04-18] MEDS ORDERED: LevETIRAcetam 500 MG TABLET PO SCH (09:00)
[2022-04-18] MEDS ORDERED: FluvoxaMINE MALEATE 50 MG TABLET PO SCH ×2 (09:00)
[2022-04-18] MEDS: LORazepam 2 MG TABLET PO PRN (10:30)
[2022-04-18] MEDS: THIAMINE 100 MG TABLET PO SCH ×2 (10:31→18:14)
[2022-04-18] MEDS: DIVALPROEX SODIUM 500 MG ER TABLET PO SCH ×2 (10:31→18:14)
[2022-04-18] MEDS: MULTIVITAMINS WITH MINERALS, THERAPEUTIC TABLET PO SCH (10:31)
[2022-04-18] MEDS: LevETIRAcetam 500 MG TABLET PO SCH ×2 (10:31→18:14)
[2022-04-18] MEDS: FOLIC ACID 1 MG TABLET PO SCH (10:31)
[2022-04-18] MEDS ORDERED: PERMETHRIN 1% 60 ML LOTION TP ONE (14:00)
[2022-04-19] MEDS ORDERED: LEVOTHYROXINE SODIUM 75 MCG TABLET PO SCH (07:00)
[2022-04-19] MEDS: LURASIDONE HCL 80 MG TABLET PO SCH (07:04)
[2022-04-19] MEDS: FOLIC ACID 1 MG TABLET PO SCH (08:23)
[2022-04-19] MEDS: MULTIVITAMINS WITH MINERALS, THERAPEUTIC TABLET PO SCH (08:23)
[2022-04-19] MEDS: LevETIRAcetam 500 MG TABLET PO SCH ×2 (08:23→16:45)
[2022-04-19] MEDS: DIVALPROEX SODIUM 500 MG ER TABLET PO SCH ×2 (08:23→16:45)
[2022-04-19] MEDS: THIAMINE 100 MG TABLET PO SCH ×2 (08:24→16:45)
[2022-04-19] MEDS ORDERED: FluvoxaMINE MALEATE 50 MG TABLET PO SCH (09:00)
[2022-04-19] MEDS ORDERED: FLUoxetine HCL 20 MG CAPSULE PO SCH (09:00)
[2022-04-19 09:15] VITALS: BP 108/67
[2022-04-20] MEDS: LEVOTHYROXINE SODIUM 25 MCG TABLET PO SCH (06:47)
[2022-04-20] MEDS ORDERED: LURASIDONE HCL 40 MG TABLET PO SCH (07:30)
[2022-04-20] MEDS: THIAMINE 100 MG TABLET PO SCH ×2 (08:17→16:00)
[2022-04-20] MEDS: DIVALPROEX SODIUM 500 MG ER TABLET PO SCH ×2 (08:17→20:27)
[2022-04-20] MEDS: FOLIC ACID 1 MG TABLET PO SCH (08:17)
[2022-04-20] MEDS: LevETIRAcetam 500 MG TABLET PO SCH ×2 (08:18→16:00)
[2022-04-20] MEDS: FLUoxetine HCL 20 MG CAPSULE PO SCH (08:18)
[2022-04-20] MEDS: MULTIVITAMINS WITH MINERALS, THERAPEUTIC TABLET PO SCH (08:18)
[2022-04-20 08:19] VITALS: BP 123/87
[2022-04-20 16:28] VITALS: BP 132/79
[2022-04-20] MEDS ORDERED: LURASIDONE HCL 60 MG TABLET PO SCH (21:00)
[2022-04-21] MEDS: LEVOTHYROXINE SODIUM 25 MCG TABLET PO SCH (06:49)
[2022-04-21] MEDS: LevETIRAcetam 500 MG TABLET PO SCH ×2 (08:32→16:51)
[2022-04-21] MEDS: THIAMINE 100 MG TABLET PO SCH ×2 (08:32→16:51)
[2022-04-21] MEDS: MULTIVITAMINS WITH MINERALS, THERAPEUTIC TABLET PO SCH (08:33)
[2022-04-21] MEDS: FOLIC ACID 1 MG TABLET PO SCH (08:33)
[2022-04-21] MEDS: FLUoxetine HCL 20 MG CAPSULE PO SCH (08:33)
[2022-04-21 08:36] VITALS: BP 143/90
[2022-04-21] MEDS: LORazepam 2 MG TABLET PO PRN (09:35)
[2022-04-21] MEDS ORDERED: LURASIDONE HCL 20 MG TABLET PO PRN (13:30)
[2022-04-21 16:41] VITALS: BP 150/99
[2022-04-21] MEDS: DIVALPROEX SODIUM 500 MG ER TABLET PO SCH (20:34)
[2022-04-21] MEDS: LURASIDONE HCL 80 MG TABLET PO SCH (20:34)
[2022-04-22] MEDS: LEVOTHYROXINE SODIUM 25 MCG TABLET PO SCH (06:42)
[2022-04-22 07:44] LABS: ALANINE AMINOTRANSFERASE 19 U/L (12-78); ALBUMIN 3.4 g/dL (3.4-5.0); ALKALINE PHOSPHATASE 83 U/L (46-116); ANION GAP 2 mmol/L (8-16); ASPARTATE AMINOTRANSFERASE 19 U/L (15-37); BILIRUBIN,TOTAL 0.3 mg/dL (0.1-1.0); CALCIUM, TOTAL 8.9 mg/dL (8.8-10.5); CARBON DIOXIDE 31 mmol/L (22-29); CHLORIDE 102 mmol/L (98-107); CREATININE 0.82 mg/dL (0.60-1.30); GLUCOSE,RANDOM 88 mg/dL (70-110); POTASSIUM 4.4 mmol/L (3.5-5.1); SODIUM SERUM 135 mmol/L (136-145); TOTAL PROTEIN, SERUM 6.9 g/dL (6.4-8.2); UREA NITROGEN, BLOOD 13 mg/dL (7-18)
[2022-04-22 07:46] LABS: GLOMERULAR FILTR. RATE CALC > 60 mL/min (>60)
[2022-04-22] MEDS: MULTIVITAMINS WITH MINERALS, THERAPEUTIC TABLET PO SCH (07:58)
[2022-04-22] MEDS: FLUoxetine HCL 20 MG CAPSULE PO SCH (07:59)
[2022-04-22] MEDS: THIAMINE 100 MG TABLET PO SCH ×2 (07:59→15:48)
[2022-04-22] MEDS: LevETIRAcetam 500 MG TABLET PO SCH ×2 (07:59→15:48)
[2022-04-22] MEDS: FOLIC ACID 1 MG TABLET PO SCH (07:59)
[2022-04-22 09:20] VITALS: BP 104/64
[2022-04-22 16:46] VITALS: BP 125/86
[2022-04-22] MEDS: LURASIDONE HCL 80 MG TABLET PO SCH (20:51)
[2022-04-22] MEDS: DIVALPROEX SODIUM 500 MG ER TABLET PO SCH (20:51)
[2022-04-23] MEDS: LEVOTHYROXINE SODIUM 25 MCG TABLET PO SCH (06:28)
[2022-04-23] MEDS: LORazepam 2 MG TABLET PO PRN (08:43)
[2022-04-23 09:12] VITALS: BP 151/87
[2022-04-23] MEDS: FLUoxetine HCL 20 MG CAPSULE PO SCH (09:25)
[2022-04-23] MEDS: MULTIVITAMINS WITH MINERALS, THERAPEUTIC TABLET PO SCH (09:25)
[2022-04-23] MEDS: FOLIC ACID 1 MG TABLET PO SCH (09:25)
[2022-04-23] MEDS: THIAMINE 100 MG TABLET PO SCH ×2 (09:25→17:17)
[2022-04-23] MEDS: LevETIRAcetam 500 MG TABLET PO SCH ×2 (09:26→17:17)
[2022-04-23 16:48] VITALS: BP 128/86
[2022-04-23] MEDS: DIVALPROEX SODIUM 500 MG ER TABLET PO SCH (20:18)
[2022-04-23] MEDS: LURASIDONE HCL 80 MG TABLET PO SCH (20:18)
[2022-04-24] MEDS: LEVOTHYROXINE SODIUM 25 MCG TABLET PO SCH (06:30)
[2022-04-24 07:35] LABS: COVID AG,FIA SOURCE NASAL SWAB
[2022-04-24 08:43] VITALS: BP 134/72
[2022-04-24] MEDS: FLUoxetine HCL 20 MG CAPSULE PO SCH (10:16)
[2022-04-24] MEDS: THIAMINE 100 MG TABLET PO SCH ×2 (10:16→17:33)
[2022-04-24] MEDS: MULTIVITAMINS WITH MINERALS, THERAPEUTIC TABLET PO SCH (10:16)
[2022-04-24] MEDS: LevETIRAcetam 500 MG TABLET PO SCH ×2 (10:16→17:33)
[2022-04-24] MEDS: FOLIC ACID 1 MG TABLET PO SCH (10:16)
[2022-04-24] MEDS: LORazepam 2 MG TABLET PO PRN (12:10)
[2022-04-24] MEDS: LURASIDONE HCL 20 MG TABLET PO PRN (13:04)
[2022-04-24 16:02] VITALS: BP 108/71
[2022-04-24 16:03] VITALS: BP 108/71
[2022-04-24] MEDS: DIVALPROEX SODIUM 500 MG ER TABLET PO SCH (20:08)
[2022-04-24] MEDS: LURASIDONE HCL 80 MG TABLET PO SCH (20:08)
[2022-04-25] MEDS: LEVOTHYROXINE SODIUM 25 MCG TABLET PO SCH (06:16)
[2022-04-25 08:22] VITALS: BP 132/92
[2022-04-25] MEDS: LURASIDONE HCL 20 MG TABLET PO PRN (12:01)
[2022-04-25] MEDS: THIAMINE 100 MG TABLET PO SCH ×2 (12:03→18:49)
[2022-04-25] MEDS: FLUoxetine HCL 20 MG CAPSULE PO SCH (12:03)
[2022-04-25] MEDS: MULTIVITAMINS WITH MINERALS, THERAPEUTIC TABLET PO SCH (12:03)
[2022-04-25] MEDS: LevETIRAcetam 500 MG TABLET PO SCH ×2 (12:03→18:49)
[2022-04-25] MEDS: LORazepam 2 MG TABLET PO PRN (12:03)
[2022-04-25] MEDS: FOLIC ACID 1 MG TABLET PO SCH (12:04)
[2022-04-25] MEDS: DIVALPROEX SODIUM 500 MG ER TABLET PO SCH (20:52)
[2022-04-25] MEDS: LURASIDONE HCL 80 MG TABLET PO SCH (20:52)
[2022-04-26] MEDS: LEVOTHYROXINE SODIUM 25 MCG TABLET PO SCH (06:57)
[2022-04-26 08:13] VITALS: BP 123/78
[2022-04-26] MEDS: FLUoxetine HCL 20 MG CAPSULE PO SCH (09:24)
[2022-04-26] MEDS: MULTIVITAMINS WITH MINERALS, THERAPEUTIC TABLET PO SCH (09:24)
[2022-04-26] MEDS: LevETIRAcetam 500 MG TABLET PO SCH ×2 (09:24→17:18)
[2022-04-26] MEDS: THIAMINE 100 MG TABLET PO SCH ×2 (09:24→17:18)
[2022-04-26] MEDS: FOLIC ACID 1 MG TABLET PO SCH (09:24)
[2022-04-26] MEDS: LURASIDONE HCL 20 MG TABLET PO PRN ×2 (09:26→18:03)
[2022-04-26] MEDS: LORazepam 2 MG TABLET PO PRN ×2 (09:26→18:03)
[2022-04-26] MEDS: PERMETHRIN 1% 60 ML LOTION TP ONE ×2 (12:00→17:17)
[2022-04-26] MEDS: DIVALPROEX SODIUM 500 MG ER TABLET PO SCH (21:03)
[2022-04-26] MEDS: LURASIDONE HCL 80 MG TABLET PO SCH (21:04)
[2022-04-27] MEDS: LEVOTHYROXINE SODIUM 25 MCG TABLET PO SCH (06:58)
[2022-04-27 08:03] VITALS: BP 130/86
[2022-04-27] MEDS: THIAMINE 100 MG TABLET PO SCH ×2 (08:58→16:19)
[2022-04-27] MEDS: FOLIC ACID 1 MG TABLET PO SCH (08:58)
[2022-04-27] MEDS: MULTIVITAMINS WITH MINERALS, THERAPEUTIC TABLET PO SCH (08:58)
[2022-04-27] MEDS: FLUoxetine HCL 20 MG CAPSULE PO SCH (08:58)
[2022-04-27] MEDS: LevETIRAcetam 500 MG TABLET PO SCH ×2 (08:58→16:19)
[2022-04-27 10:00] VITALS: BP 141/89
[2022-04-27] MEDS: LORazepam 2 MG TABLET PO PRN ×2 (10:01→18:03)
[2022-04-27 16:10] VITALS: BP 138/84
[2022-04-27] MEDS: LURASIDONE HCL 80 MG TABLET PO SCH (20:46)
[2022-04-27] MEDS: DIVALPROEX SODIUM 500 MG ER TABLET PO SCH (20:47)
[2022-04-27] MEDS: ESZOPICLONE 3 MG TABLET PO PRN (20:47)
[2022-04-27] MEDS ORDERED: OMEG-135 PO (21:49)
[2022-04-27] MEDS ORDERED: NALT50TA6 PO (21:49)
[2022-04-27] MEDS ORDERED: FLUO20CA36 PO (21:49)
[2022-04-27] MEDS ORDERED: LEVE500T8 PO (21:49)
[2022-04-27] MEDS ORDERED: MELA5TAB40 PO (21:49)
[2022-04-27] MEDS ORDERED: DIVA-80 PO (21:49)
[2022-04-27] MEDS ORDERED: LURA80TA2 PO (21:49)
[2022-04-28] MEDS: LEVOTHYROXINE SODIUM 25 MCG TABLET PO SCH (06:26)
[2022-04-28] MEDS: LORazepam 2 MG TABLET PO PRN (06:38)
[2022-04-28] MEDS: MULTIVITAMINS WITH MINERALS, THERAPEUTIC TABLET PO SCH (08:12)
[2022-04-28] MEDS: FLUoxetine HCL 20 MG CAPSULE PO SCH (08:13)
[2022-04-28] MEDS: LevETIRAcetam 500 MG TABLET PO SCH ×2 (08:13→17:09)
[2022-04-28 08:28] VITALS: BP 106/67
[2022-04-28] MEDS ORDERED: TUBERCULIN, PURIFIED PROTEIN DERIVATIVE 5 TU/0.1 ML SYRINGE ID ONE (09:45)
[2022-04-28] MEDS: LURASIDONE HCL 20 MG TABLET PO PRN ×2 (11:38→17:09)
[2022-04-28 16:13] VITALS: BP 101/74
[2022-04-28] MEDS: LURASIDONE HCL 80 MG TABLET PO SCH (20:20)
[2022-04-28] MEDS: DIVALPROEX SODIUM 500 MG ER TABLET PO SCH (20:20)
[2022-04-29] MEDS: LEVOTHYROXINE SODIUM 25 MCG TABLET PO SCH (06:20)
[2022-04-29 06:34] LABS: COVID AG,FIA SOURCE NASAL SWAB
[2022-04-29] MEDS: FLUoxetine HCL 20 MG CAPSULE PO SCH (08:14)
[2022-04-29] MEDS: LevETIRAcetam 500 MG TABLET PO SCH ×2 (08:14→17:48)
[2022-04-29] MEDS: MULTIVITAMINS WITH MINERALS, THERAPEUTIC TABLET PO SCH (08:14)
[2022-04-29 08:44] VITALS: BP 99/65
[2022-04-29] MEDS: LORazepam 2 MG TABLET PO PRN ×4 (11:42→21:33)
[2022-04-29 16:16] VITALS: BP 123/79
[2022-04-29] MEDS: DIVALPROEX SODIUM 500 MG ER TABLET PO SCH (21:00)
[2022-04-29] MEDS: ESZOPICLONE 3 MG TABLET PO PRN (21:02)
[2022-04-29] MEDS: LURASIDONE HCL 80 MG TABLET PO SCH (21:03)
[2022-04-30] MEDS: LEVOTHYROXINE SODIUM 25 MCG TABLET PO SCH (06:23)
[2022-04-30 08:12] VITALS: BP 139/95
[2022-04-30] MEDS: LORazepam 2 MG TABLET PO PRN ×2 (09:16→17:38)
[2022-04-30] MEDS: LevETIRAcetam 500 MG TABLET PO SCH ×2 (09:16→17:31)
[2022-04-30] MEDS: LURASIDONE HCL 20 MG TABLET PO PRN ×2 (09:16→17:38)
[2022-04-30] MEDS: MULTIVITAMINS WITH MINERALS, THERAPEUTIC TABLET PO SCH (09:16)
[2022-04-30] MEDS: FLUoxetine HCL 20 MG CAPSULE PO SCH (09:16)
[2022-04-30 16:19] VITALS: BP 108/64
[2022-04-30 20:17] VITALS: BP 119/81
[2022-04-30] MEDS: ESZOPICLONE 3 MG TABLET PO PRN (21:02)
[2022-04-30] MEDS: LURASIDONE HCL 80 MG TABLET PO SCH (21:03)
[2022-04-30] MEDS: DIVALPROEX SODIUM 500 MG ER TABLET PO SCH (21:03)
[2022-05-01] MEDS: LEVOTHYROXINE SODIUM 25 MCG TABLET PO SCH (06:20)
[2022-05-01 08:19] VITALS: BP 136/90
[2022-05-01] MEDS: LURASIDONE HCL 20 MG TABLET PO PRN ×2 (10:09→14:57)
[2022-05-01] MEDS: LevETIRAcetam 500 MG TABLET PO SCH ×2 (10:11→17:03)
[2022-05-01] MEDS: LORazepam 2 MG TABLET PO PRN ×2 (10:11→14:57)
[2022-05-01] MEDS: MULTIVITAMINS WITH MINERALS, THERAPEUTIC TABLET PO SCH (10:11)
[2022-05-01] MEDS: FLUoxetine HCL 20 MG CAPSULE PO SCH (10:12)
[2022-05-01 16:07] VITALS: BP 144/97
[2022-05-01] MEDS: LURASIDONE HCL 80 MG TABLET PO SCH (20:39)
[2022-05-01] MEDS: DIVALPROEX SODIUM 500 MG ER TABLET PO SCH (20:40)
[2022-05-01] MEDS: ESZOPICLONE 3 MG TABLET PO PRN (20:40)
[2022-05-02] MEDS: LEVOTHYROXINE SODIUM 25 MCG TABLET PO SCH (06:17)
[2022-05-02 07:36] LABS: FREE T4 (FREE THYROXINE) 0.94 ng/dL (0.76-1.46); THYROID STIMULATING HORMONE 3.23 uIU/mL (0.36-3.74)
[2022-05-02 08:14] VITALS: BP 99/55
[2022-05-02] MEDS ORDERED: LEVO25TA9 PO (09:27)
[2022-05-02] MEDS: FLUoxetine HCL 20 MG CAPSULE PO SCH (10:16)
[2022-05-02] MEDS: LURASIDONE HCL 20 MG TABLET PO PRN (10:16)
[2022-05-02] MEDS: MULTIVITAMINS WITH MINERALS, THERAPEUTIC TABLET PO SCH (10:16)
[2022-05-02] MEDS: LevETIRAcetam 500 MG TABLET PO SCH (10:16)
== END 2022-05-02 14:42 | DRG 750 ==
LOC: 3EC 20:45
PROVIDERS: ADMIT Psychiatry & Neurology Psychiatry; ATTEND Psychiatry & Neurology Psychiatry
DX: F25.0 Schizoaffective disorder, bipolar type (principal); E87.1 Hypo-osmolality and hyponatremia; D72.829 Elevated white blood cell count, unspecified; E03.9 Hypothyroidism, unspecified; Z20.822 Contact with and (suspected) exposure to COVID-19; G40.409 Other generalized epilepsy and epileptic syndromes, not intractable, without status epilepticus; F32.A Depression, unspecified; R41.843 Psychomotor deficit; E66.9 Obesity, unspecified; F41.9 Anxiety disorder, unspecified; Z55.9 Problems related to education and literacy, unspecified; Z59.9 Problem related to housing and economic circumstances, unspecified; Z63.9 Problem related to primary support group, unspecified; Z65.3 Problems related to other legal circumstances; Z88.0 Allergy status to penicillin; Z88.8 Allergy status to other drugs, medicaments and biological substances; Z68.42 Body mass index [BMI] 45.0-49.9, adult; Z79.899 Other long term (current) drug therapy
CPT/HCPCS: 80053; 80164; 80178; 84439; 84443; 87081; G0482; Q9967